=== PATIENT | male | born 1940 | race Caucasian/White ===

== ENCOUNTER 2016-09-12 08:40 | Outpatient (CLI) | payer MEDICARE | END 2016-09-12 08:41 | disposition home or self-care (01) | DX: I10 Essential (primary) hypertension (principal); E78.5 Hyperlipidemia, unspecified; E11.9 Type 2 diabetes mellitus without complications ==

== ENCOUNTER 2017-08-06 08:24 | Outpatient (CLI) | payer MEDICARE ==
[2017-08-06] MEDS ORDERED: REGADENOSON 0.4 MG/5 ML SYRINGE IVP ONE ×2 (09:53→12:46)
--- NOTE | 2017-08-06 11:38 | CARDIAC PROCEDURE NOTE ---
DATE OF SERVICE: 08/06/2017 Physician: OBDULIO Valentine DATE OF SERVICE: 08/06/2017 PRIMARY CARE PROVIDER: Lu Siddiqi MD PROCEDURE: Pharmacologic cardiac stress test. PROCEDURE SYMPTOM: Diaphoresis. CARDIAC RISK FACTORS: Include age, diabetes, hypertension, hyperlipidemia. No previous cardiac procedures. The patient held metoprolol for 1 day. CLINICAL HISTORY: A 77-year-old male without known coronary artery disease. INITIAL RESTING VITAL SIGNS: Blood pressure 148/98, heart rate 101, height 73 inches, weight 304 pounds, BMI 39.8. PROCEDURE AND FINDINGS: Patient identity and date verified, consent signed, pharmaceutical check. Pharmacologic stress testing was performed with Lexiscan at a dose of 0.4 mg over 10 seconds. The blood pressure rik to 166/102 and the heart rate increased to 115 beats per minute from the infusion. The blood pressure response was normal during the stress procedure. The patient developed infusion-related symptoms including shortness of air, which resolved spontaneously. The resting ECG demonstrated atrial fibrillation with no ST or T-wave changes. Maximum ST segment depression with stress was 0. There was no ventricular ectopy. FINAL IMPRESSION 1. Atrial fibrillation. 2. Negative electrocardiogram for ischemia in the setting of vasodilator stress. 3. Nondiagnostic stress test for angina. 4. Await myocardial perfusion report. TD: 08/06/2017 12:37
--- NOTE | 2017-08-06 15:54 | Nuclear Medicine Report ---
EXAM: SINGLE-ISOTOPE PHARMACOLOGICAL STRESS TEST WITH REGADENOSON. SINGLE-ISOTOPE AND ONE-DAY REST/STRESS M YOCARDIAL PERFUSION SCANS WITH TOMOGRAPHIC IMAGING, QUANTITATIVE ANALYSIS, WALL MOTION ANALYSIS AND C ALCULATION OF EJECTION FRACTION. EXAM DATE: 08/06/2017 09:51 AM. CLINICAL HISTORY: DIAPHORESIS, AFIB, HTN. COMPARISON: None. TECHNIQUE: After the intravenous administration of 10.7 mCi of Tc-99m sestamibi, a rest myocardial perfusion sca n was done with tomography. Motion correction was applied when appropriate. A pharmacological stress was performed with the infusion of 0.4 mg regadenoson per protocol. Accordin g to protocol, 41.5 mCi of Tc-99m sestamibi was injected for stress myocardial perfusion scan. Motion correction was applied when appropriate. Gated tomographic images were obtained for wall motion analysis and computation of left ventricular e jection fraction. FINDINGS: There is a small, moderate fixed defect in the inferior apex. There is a small, mild, fixed distal anteroseptal defect. No convincing reversible perfusion defects. Wall motion analysis demonstrates no focal wall motion abnormality. The left ventricular end-diastolic volume is 131 cc. The left ventricular end-systolic volume is 65 c c. The left ventricular ejection fraction is calculated to be 50%. IMPRESSION: 1. Small fixed defects in the inferior apex and distal anteroseptal wall. No convincing reversible pe rfusion defects. 2. Borderline left ventricular ejection fraction of 50%. 3. Normal segmental and global wall motion. 4. Normal left ventricular cavity size, no change with stress. [facility] Referring Provider Line: [phone] SITE ID: [id number]
[2017-08-06 18:20] VITALS: BP 148/98
== END 2017-08-06 08:25 | disposition home or self-care (01) ==
LOC: DI 08:24
PROVIDERS: ATTEND Physician Assistant Medical
DX: I48.91 Unspecified atrial fibrillation (principal); I10 Essential (primary) hypertension; R61 Generalized hyperhidrosis; E11.9 Type 2 diabetes mellitus without complications; E78.5 Hyperlipidemia, unspecified
CPT/HCPCS: 78452; 93017; A9500; J2785

== ENCOUNTER 2017-08-26 09:51 | Outpatient (CLI) | payer MEDICARE ==
[~2017-08-26 09:51] MED LIST: IOPAMIDOL-300 100 ML VIAL ONE
[2017-08-26 10:35] LABS: CREATININE 1.4 mg/dL (0.6-1.2)
[2017-08-26] MEDS ORDERED: IOPAMIDOL-300 100 ML VIAL ONE (10:48)
[2017-08-26] MEDS ORDERED: IOPAMIDOL-300 100 ML VIAL IVP ONE (11:13)
--- NOTE | 2017-08-26 14:15 | CT Report ---
CT CHEST WITH CONTRAST: 08/26/2017 CLINICAL INDICATION: Followup pulmonary nodule. COMPARISON: 10/19/2015. FINDINGS: Axial CT images of the chest were obtained with 80 mL Isovue 300 intravenously FINDINGS: The heart and great vessels demonstrate atherosclerotic calcifications. No hilar or mediastinal lymphadenopathy is present. The 10 mm nodule in the anterior lingula is stable. The lungs demonstrate mild peripheral fibrosis. No new pulmonary nodule is seen. No effusion or pneumothorax is present. Limited evaluation of upper abdominal structures demonstrates stable bilateral adrenal adenomas. Osseous structures demonstrate degenerative changes. IMPRESSION: STABLE 10 MM NODULE IN THE ANTERIOR LINGULA. NO NEW OR ENLARGING PULMONARY NODULE IS SEEN. In accordance with CT protocol optimization, one or more of the following dose reduction techniques were utilized for this exam: automated exposure control, adjustment of mA and/or KV based on patient size, or use of iterative reconstructive technique. TD: 08/26/2017 14:13
== END 2017-08-26 09:52 | disposition home or self-care (01) ==
LOC: LAB 09:51
PROVIDERS: ATTEND Family Medicine
DX: J98.4 Other disorders of lung (principal)
CPT/HCPCS: 36415; 71260; 82565; Q9967

== ENCOUNTER 2017-11-30 08:14 | Outpatient (CLI) | payer MEDICARE ==
[2017-11-30 12:57] LABS: CALCIUM 8.9 mg/dL (8.5-10.3); CREATININE 1.2 mg/dL (0.6-1.2); HB2 TOTAL 15.7 g/dL; HEMOGLOBIN A1C 0.88 g/dL; HEMOGLOBIN A1C % 7.3 % (4.6-6.2)
== END 2017-11-30 08:15 | disposition home or self-care (01) ==
LOC: LAB.WCP 08:14
PROVIDERS: ATTEND Family Medicine
DX: E11.9 Type 2 diabetes mellitus without complications (principal)
CPT/HCPCS: 36415; 80048; 82043; 83036

== ENCOUNTER 2018-05-05 14:57 | Outpatient (CLI) | payer MEDICARE ==
[2018-05-05 18:54] LABS: BASOPHILS # (AUTO) 0.1 10^3/uL (0.0-0.1); BASOPHILS % (AUTO) 0.8 %; EOSINOPHILS # (AUTO) 0.2 10^3/uL (0.0-0.7); HGB - HEMOGLOBIN 14.4 g/dL (14.0-18.0); LYMPHOCYTES # (AUTO) 2.2 10^3/uL (1.5-3.5); LYMPHOCYTES % (AUTO) 27.3 %; MEAN CORPUSCULAR HGB CONC 33.5 g/dL (32.0-36.0); MEAN CORPUSCULAR VOLUME 89.4 fL (80.0-94.0); MEAN PLATELET VOLUME 8.8 fL (7.4-11.4); MONOCYTES # (AUTO) 0.6 10^3/uL (0.0-1.0); NEUTROPHILS # (AUTO) 4.9 10^3/uL (1.5-6.6); NEUTROPHILS % (AUTO) 61.9 %; PLT - PLATELET COUNT 216 10^3/uL (130-450); RED BLOOD COUNT 4.81 10^6/uL (4.70-6.10); RED CELL DISTRIBUTION WIDTH 15.3 % (12.0-15.0); WHITE BLOOD COUNT 7.9 x10^3/uL (4.8-10.8)
[2018-05-05 19:17] LABS: ALBUMIN 3.9 g/dL (3.2-5.5); ALBUMIN/GLOBULIN RATIO 1.1 (1.0-2.2); ALKALINE PHOSPHATASE 62 IU/L (42-121); ALT ALANINE AMINOTRANSFERASE 12 IU/L (10-60); AST ASPARTATE AMINOTRANSFERASE 23 IU/L (10-42); BILIRUBIN,TOTAL 0.6 mg/dL (0.2-1.0); BUN - BLOOD UREA NITROGEN 21 mg/dL (6-20); CARBON DIOXIDE - CO2 24 mmol/L (21-32); CHLORIDE 104 mmol/L (101-111); CHOL/HDL RATIO 3.8 (<5.0); CHOLESTEROL 165 mg/dL; CREATININE 1.1 mg/dL (0.6-1.2); GFR - MDRD 65 (>89); GLUCOSE 173 mg/dL (70-100); HDL CHOLESTEROL 44 mg/dL; LDL CHOLESTEROL,CALCULATED 55 mg/dL; LDL/HDL RATIO 1.3 (<3.6); SODIUM 135 mmol/L (135-145); TOTAL PROTEIN 7.3 g/dL (6.7-8.2); VLDL CHOLESTEROL 66 mg/dL
[2018-05-05 19:38] LABS: HB2 TOTAL 15.1 g/dL; HEMOGLOBIN A1C 0.89 g/dL; HEMOGLOBIN A1C % 7.5 % (4.6-6.2)
== END 2018-05-05 14:58 | disposition home or self-care (01) ==
LOC: LAB.WCP 14:57
PROVIDERS: ATTEND Family Medicine
DX: E11.9 Type 2 diabetes mellitus without complications (principal); E78.5 Hyperlipidemia, unspecified
CPT/HCPCS: 36415; 80053; 80061; 83036; 83721; 85025

== ENCOUNTER 2018-12-20 08:00 | Outpatient (CLI) | payer MEDICARE, OTHER ==
[2018-12-20 12:46] LABS: BASOPHILS # (AUTO) 0.1 10^3/uL (0.0-0.1); BASOPHILS % (AUTO) 1.1 %; EOSINOPHILS # (AUTO) 0.2 10^3/uL (0.0-0.7); EOSINOPHILS % (AUTO) 3.3 %; HGB - HEMOGLOBIN 13.3 g/dL (14.0-18.0); LYMPHOCYTES # (AUTO) 1.8 10^3/uL (1.5-3.5); LYMPHOCYTES % (AUTO) 27.9 %; MEAN CORPUSCULAR HEMOGLOBIN 29.5 pg (27.0-31.0); MEAN CORPUSCULAR HGB CONC 33.3 g/dL (32.0-36.0); MEAN CORPUSCULAR VOLUME 88.6 fL (80.0-94.0); MEAN PLATELET VOLUME 8.3 fL (7.4-11.4); MONOCYTES # (AUTO) 0.4 10^3/uL (0.0-1.0); MONOCYTES % (AUTO) 6.3 %; NEUTROPHILS # (AUTO) 3.9 10^3/uL (1.5-6.6); NEUTROPHILS % (AUTO) 61.4 %; PLT - PLATELET COUNT 200 10^3/uL (130-450); RED BLOOD COUNT 4.51 10^6/uL (4.70-6.10); RED CELL DISTRIBUTION WIDTH 15.7 % (12.0-15.0); WHITE BLOOD COUNT 6.3 x10^3/uL (4.8-10.8)
[2018-12-20 12:55] LABS: HB2 TOTAL 13.3 g/dL; HEMOGLOBIN A1C 0.82 g/dL; HEMOGLOBIN A1C % 7.8 % (4.6-6.2)
[2018-12-20 13:07] LABS: ALBUMIN 3.8 g/dL (3.2-5.5); ALBUMIN/GLOBULIN RATIO 1.2 (1.0-2.2); ALKALINE PHOSPHATASE 46 IU/L (42-121); ALT ALANINE AMINOTRANSFERASE 11 IU/L (10-60); AST ASPARTATE AMINOTRANSFERASE 25 IU/L (10-42); BILIRUBIN,TOTAL 0.7 mg/dL (0.2-1.0); BUN - BLOOD UREA NITROGEN 17 mg/dL (6-20); CALCIUM 8.8 mg/dL (8.5-10.3); CARBON DIOXIDE - CO2 21 mmol/L (21-32); CHLORIDE 109 mmol/L (101-111); CHOL/HDL RATIO 3.6 (<5.0); CHOLESTEROL 142 mg/dL; CREATININE 1.2 mg/dL (0.6-1.2); GFR - MDRD 59 (>89); GLUCOSE 136 mg/dL (70-100); HDL CHOLESTEROL 40 mg/dL; LDL CHOLESTEROL,CALCULATED 82 mg/dL; LDL/HDL RATIO 2.1 (<3.6); SODIUM 140 mmol/L (135-145); TOTAL PROTEIN 7.1 g/dL (6.7-8.2); VLDL CHOLESTEROL 20 mg/dL
== END 2018-12-20 08:01 | disposition home or self-care (01) ==
LOC: LAB.WCP 08:00
PROVIDERS: ATTEND Family Medicine
DX: I48.91 Unspecified atrial fibrillation (principal); E11.9 Type 2 diabetes mellitus without complications
CPT/HCPCS: 36415; 80053; 80061; 83036; 83721; 84443; 85025

== ENCOUNTER 2018-12-23 10:43 | Outpatient (CLI) | payer MEDICARE, OTHER | END 2018-12-23 10:44 | disposition critical access hospital (66) | LOC: EMS 10:43 | PROVIDERS: ATTEND Surgery | DX: R04.0 Epistaxis (principal) | CPT/HCPCS: A0425; A0429 ==

== ENCOUNTER 2018-12-23 10:55 | Emergency (ER) | payer MEDICARE, OTHER ==
[2018-12-23 11:07] VITALS: BP 149/83
[2018-12-23] MEDS ORDERED: LIDOCAINE MPF 1%-EPI 1:200000 30 ML VIAL ONE (12:21)
--- NOTE | 2018-12-23 12:57 | ED Physician Documentation ---
PD HPI HEENT - Stated complaint Stated Complaint: NOSE BLEED - Chief complaint Chief Complaint: Heent - History obtained from History obtained from: Patient - History of Present Illness Timing - onset: Today Timing - details: Now resolved Location: Nose - Additional information Additional information: The patient is a 78-year-old male who presents after 2 hours of bleeding from the right side of his nose this morning. He reports similar bleeding 2 weeks ago, with recurrence this morning. He is on Xarelto for atrial fibrillation. He denies any traumatic injury to his nose. Review of Systems Constitutional: denies: Fever Eyes: denies: Irritation Ears: denies: Ear pain Nose: reports: Epistaxis. denies: Congestion Throat: denies: Sore throat Cardiac: denies: Chest pain / pressure Respiratory: denies: Dyspnea GI: denies: Abdominal Pain, Nausea, Vomiting Skin: denies: Rash Neurologic: denies: Focal weakness, Numbness, Headache PD PAST MEDICAL HISTORY - Past Medical History Past Medical History: Yes Cardiovascular: Hypertension, High cholesterol, Atrial fibrillation, Murmur Respiratory: Sleep apnea, CPAP use Endocrine/Autoimmune: Type 2 diabetes Musculoskeletal: Osteoarthritis - Past Surgical History Past Surgical History: Yes Ortho: Hip replacement, Other Derm: Skin grafts - Present Medications Home Medications: Ambulatory Orders Medication Instructions Recorded Confirmed Felodipine [Felodipine ER] 10 mg PO DAILY 12/23/18 12/23/18 Losartan Potassium 100 mg PO DAILY 12/23/18 12/23/18 Metoprolol/Hydrochlorothiazide 1 each PO DAILY 12/23/18 12/23/18 [Lopressor Hct 50-25 Tablet] Simvastatin 40 mg PO DAILY 12/23/18 12/23/18 Tamsulosin HCl [Flomax] 0.4 mg PO DAILY 12/23/18 12/23/18 Warfarin Sodium 5 mg PO DAILY 12/23/18 12/23/18 metFORMIN [Glucophage] 500 mg PO BID 12/23/18 12/23/18 - Allergies Allergies/Adverse Reactions: Allergies Allergy/AdvReac Type Severity Reaction Status Date / Time No Known Drug Allergies Allergy Verified 12/23/18 11:07 - Social History Does the pt smoke?: Yes Smoking Status: Current every day smoker Does the pt drink ETOH?: Yes Does the pt have substance abuse?: No - Immunizations Immunizations are current?: No Immunizations: TDAP >10years/unknown - POLST Patient has POLST: No PD ED PE NORMAL - Vitals Vital signs reviewed: Yes (Borderline hypertension initially.) - General General: Alert and oriented X 3, Well developed/nourished, Other ([place] facial appearance, with odor of stale alcohol on his breath.) - HEENT HEENT: Atraumatic, EOMI, Pharynx benign, Other (Bleeding site along the right anterior nasal septum is identified, but is no longer bleeding.) - Neck Neck: No adenopathy, No JVD - Cardiac Cardiac: RRR - Respiratory Respiratory: No respiratory distress, Clear bilaterally - Derm Derm: No rash - Neuro Neuro: Alert and oriented X 3, No motor deficit, Normal speech Results - Vitals Vitals: Vital Signs - 24 hr 12/23/18 11:04 Temperature 36.6 C Heart Rate 88 Respiratory 14 Rate Blood Pressure 149/83 H O2 Saturation 95 Oxygen O2 Source Room air Procedures - Epistaxis Site: Right, Anterior Preparation: Lidocaine Treatment: Silver Nitrate Other: Observed - no bleeding, Pt tolerated well, O2 sat WNL PD MEDICAL DECISION MAKING - ED course Complexity details: re-evaluated patient, considered differential, d/w patient ED course: The patient's presentation is significant for right anterior epistaxis, on anticoagulant therapy. Treatment in the emergency department included silver nitrate cautery of the bleeding site, after topical lidocaine anesthesia. The patient was observed and had no recurrent episode of bleeding. Antibiotic ointment was applied to the nasal mucosa. I discussed with him appropriate care of the cautery site, as well as potentially worrisome signs or symptoms that should prompt reevaluation in the emergency department. Departure - Departure Disposition: 01 Home, Self Care Clinical Impression: Anterior epistaxis Condition: Stable Instructions: ED Nosebleed Follow-Up: Olga Siddiqi DO [Primary Care Provider] - Comments: Apply antibiotic ointment to your nasal mucosa daily. If your nose bleeds again apply pressure to the side of your nose that is bleeding. If the bleeding does not stop within 10 to 15 minutes, return to the emergency department. Discharge Date/Time: 12/23/18 13:02
== END 2018-12-23 13:02 | disposition home or self-care (01) ==
LOC: EDUNIT# → ED 10:55
DX: R04.0 Epistaxis (principal); I48.91 Unspecified atrial fibrillation; I10 Essential (primary) hypertension; E11.9 Type 2 diabetes mellitus without complications; Z79.01 Long term (current) use of anticoagulants; Z79.84 Long term (current) use of oral hypoglycemic drugs; Z79.899 Other long term (current) drug therapy; F17.200 Nicotine dependence, unspecified, uncomplicated
CPT/HCPCS: 30901; 99283

== ENCOUNTER 2019-05-24 14:14 | Outpatient (CLI) | payer MEDICARE, OTHER ==
[2019-05-24 18:46] LABS: BASOPHILS % (AUTO) 0.5 %; EOSINOPHILS # (AUTO) 0.1 10^3/uL (0.0-0.7); EOSINOPHILS % (AUTO) 1.7 %; HGB - HEMOGLOBIN 13.4 g/dL (14.0-18.0); LYMPHOCYTES # (AUTO) 2.2 10^3/uL (1.5-3.5); LYMPHOCYTES % (AUTO) 26.8 %; MEAN CORPUSCULAR HEMOGLOBIN 28.6 pg (27.0-31.0); MEAN CORPUSCULAR HGB CONC 31.4 g/dL (32.0-36.0); MEAN PLATELET VOLUME 10.7 fL (7.4-11.4); MONOCYTES # (AUTO) 0.5 10^3/uL (0.0-1.0); MONOCYTES % (AUTO) 6.4 %; NEUTROPHILS # (AUTO) 5.2 10^3/uL (1.5-6.6); PLT - PLATELET COUNT 205 10^3/uL (130-450); RED BLOOD COUNT 4.69 10^6/uL (4.70-6.10); RED CELL DISTRIBUTION WIDTH 15.6 % (12.0-15.0); WHITE BLOOD COUNT 8.1 x10^3/uL (4.8-10.8)
[2019-05-24 19:02] LABS: HB2 TOTAL 13.6 g/dL; HEMOGLOBIN A1C 0.83 g/dL; HEMOGLOBIN A1C % 7.7 % (4.6-6.2)
[2019-05-24 19:03] LABS: CREATININE,URINE 157.7 mg/dL; MICROALBUM/CREATININE RATIO,UR 4.4 ug/mg (<30.0); MICROALBUMIN,URINE 0.7 mg/dL (0-300.0)
[2019-05-24 19:05] LABS: ALBUMIN/GLOBULIN RATIO 1.1 (1.0-2.2); ALKALINE PHOSPHATASE 49 IU/L (42-121); ALT ALANINE AMINOTRANSFERASE 13 IU/L (10-60); AST ASPARTATE AMINOTRANSFERASE 26 IU/L (10-42); BILIRUBIN,TOTAL 0.8 mg/dL (0.2-1.0); BUN - BLOOD UREA NITROGEN 22 mg/dL (6-20); CALCIUM 8.9 mg/dL (8.5-10.3); CARBON DIOXIDE - CO2 24 mmol/L (21-32); CHLORIDE 105 mmol/L (101-111); CHOL/HDL RATIO 3.3 (<5.0); CHOLESTEROL 139 mg/dL; CREATININE 1.1 mg/dL (0.6-1.2); GFR - MDRD 65 (>89); GLUCOSE 99 mg/dL (70-100); HDL CHOLESTEROL 42 mg/dL; LDL CHOLESTEROL,CALCULATED 68 mg/dL; LDL/HDL RATIO 1.6 (<3.6); SODIUM 140 mmol/L (135-145); TOTAL PROTEIN 7.6 g/dL (6.7-8.2); VLDL CHOLESTEROL 29 mg/dL
== END 2019-05-24 23:59 | disposition home or self-care (01) ==
LOC: LAB.WCP 14:14
PROVIDERS: ATTEND Family Medicine
DX: E11.9 Type 2 diabetes mellitus without complications (principal)
CPT/HCPCS: 36415; 80053; 80061; 82043; 82570; 83036; 83721; 84443; 85025

== ENCOUNTER 2019-05-31 14:17 | Outpatient (CLI) | payer MEDICARE, OTHER ==
--- NOTE | 2019-05-31 16:41 | XRAY Report ---
Reason: RIGHT 5TH TOE PAIN Procedure Date: 05/31/2019 Accession Number: [id number] / [id number] Procedure: WCP - Toe(s) RT CPT Code: Final Report FULL RESULT: EXAM: RIGHT TOE RADIOGRAPHY. EXAM DATE: 05/31/2019 02:17 PM. CLINICAL HISTORY: Right 5th toe pain. COMPARISON: None. TECHNIQUE: 3 views. FINDINGS: Bones: There is a nondisplaced oblique transverse fracture through the base of the tuft, distal phalanx 5th digit. Nondisplaced transverse fracture proximal metaphysis of the 5th proximal phalanx as well. No additional fractures identified. Joints: Normal. No subluxations. Soft Tissues: Soft tissue swelling noted of the 5th digit. IMPRESSION: Nondisplaced transverse fractures proximal metaphysis 5th proximal phalanx and base of the tuft 5th distal phalanx. [facility]
== END 2019-05-31 23:59 | disposition home or self-care (01) ==
LOC: DI.WCP 14:17
PROVIDERS: ATTEND Family Medicine
DX: S92.514A Nondisplaced fracture of proximal phalanx of right lesser toe(s), initial encounter for closed fracture (principal); S92.534A Nondisplaced fracture of distal phalanx of right lesser toe(s), initial encounter for closed fracture
CPT/HCPCS: 73660

== ENCOUNTER 2019-11-23 08:18 | Outpatient (CLI) | payer MEDICARE, OTHER ==
--- NOTE | 2019-11-24 12:12 | CT Report ---
Reason: PULMONARY NODULE Procedure Date: 11/23/2019 Accession Number: [id number] / [id number] Procedure: CT - CHEST WO CPT Code: Final Report FULL RESULT: EXAM: CT CHEST EXAM DATE: 11/23/2019 08:35 AM. CLINICAL HISTORY: Pulmonary nodule. COMPARISONS: CHEST W/ 08/26/2017 10:56 AM. CHEST W/O 10/19/2015 11:01 AM. TECHNIQUE: Routine helical CT imaging was performed through the chest. IV contrast: None. Reconstructions: Coronal and sagittal. In accordance with CT protocol optimization, one or more of the following dose reduction techniques were utilized for this exam: automated exposure control, adjustment of mA and/or KV based on patient size, or use of iterative reconstructive technique. FINDINGS: Lungs/Pleura: No endobronchial obstruction. Peripheral subpleural reticulation and groundglass opacities are seen with more prominent subpleural reticulation, mild bronchial dilatation and groundglass opacities in both lower lobes which has progressed in the interval consistent with interstitial lung disease. Lingular subpleural 10 mm nodule, image 229, series 4, stable. Adjacent left upper lobe nodules image 154, series 4, the largest measuring 4 mm, stable. Peripheral right upper lobe nodule measuring 4 mm, image 104, series 4, stable. Right middle lobe 3 mm nodule image 180, series 4, stable. Left upper lobe 3 mm nodule image 99, series 4, stable. No new parenchymal nodules are identified. Mediastinum: Visualized thyroid gland is unremarkable. Heart size is normal. Extensive coronary artery calcified plaque. Aortic valve calcifications. Thoracic aortic atherosclerosis. No enlarged mediastinal or hilar lymph nodes are identified. Thoracic aorta is tortuous. Bones: Degenerative changes of the thoracic spine. Degenerative changes of both shoulders. No acute osseous abnormalities. Visualized Abdomen: Abdominal aortic atherosclerosis. Low-density right adrenal nodule again seen, stable in size, measuring up to 34 mm, nodule is consistent with an adenoma. Left adrenal nodule also again seen measuring 55 mm, also stable in size and most consistent with an adenoma. Otherwise unremarkable upper abdomen. Other: None. IMPRESSION: 1. Stable bilateral lung nodules, the largest 10 mm in the lingula compared to 10/19/2015. 2. Progression of interstitial lung disease. 3. Stable bilateral adrenal nodules. [facility]
== END 2019-11-23 08:19 | disposition home or self-care (01) ==
LOC: DI 08:18
PROVIDERS: ATTEND Family Medicine
DX: R91.8 Other nonspecific abnormal finding of lung field (principal); J84.9 Interstitial pulmonary disease, unspecified; E27.8 Other specified disorders of adrenal gland
CPT/HCPCS: 71250

== ENCOUNTER 2020-03-22 08:00 | Outpatient (CLI) | payer MEDICARE, OTHER ==
[2020-03-22 12:10] LABS: BASOPHILS # (AUTO) 0.1 10^3/uL (0.0-0.1); BASOPHILS % (AUTO) 0.8 %; EOSINOPHILS # (AUTO) 0.2 10^3/uL (0.0-0.7); EOSINOPHILS % (AUTO) 3.4 %; HGB - HEMOGLOBIN 13.9 g/dL (14.0-18.0); MEAN CORPUSCULAR HEMOGLOBIN 30.3 pg (27.0-31.0); MEAN CORPUSCULAR HGB CONC 33.1 g/dL (32.0-36.0); MEAN CORPUSCULAR VOLUME 91.7 fL (80.0-94.0); MEAN PLATELET VOLUME 10.8 fL (7.4-11.4); MONOCYTES # (AUTO) 0.4 10^3/uL (0.0-1.0); MONOCYTES % (AUTO) 6.9 %; NEUTROPHILS # (AUTO) 3.5 10^3/uL (1.5-6.6); NEUTROPHILS % (AUTO) 56.2 %; PLT - PLATELET COUNT 189 10^3/uL (130-450); RED BLOOD COUNT 4.58 10^6/uL (4.70-6.10); RED CELL DISTRIBUTION WIDTH 14.3 % (12.0-15.0); WHITE BLOOD COUNT 6.1 x10^3/uL (4.8-10.8)
[2020-03-22 12:26] LABS: ALBUMIN 3.7 g/dL (3.2-5.5); ALBUMIN/GLOBULIN RATIO 1.1 (1.0-2.2); ALKALINE PHOSPHATASE 86 IU/L (42-121); ALT ALANINE AMINOTRANSFERASE 13 IU/L (10-60); AST ASPARTATE AMINOTRANSFERASE 19 IU/L (10-42); BILIRUBIN,TOTAL 0.5 mg/dL (0.2-1.0); BUN - BLOOD UREA NITROGEN 21 mg/dL (6-20); CALCIUM 8.9 mg/dL (8.5-10.3); CARBON DIOXIDE - CO2 26 mmol/L (21-32); CHLORIDE 103 mmol/L (101-111); CHOL/HDL RATIO 5.2 (<5.0); CHOLESTEROL 182 mg/dL; CREATININE 1.1 mg/dL (0.6-1.2); GLUCOSE 347 mg/dL (70-100); HDL CHOLESTEROL 35 mg/dL; LDL CHOLESTEROL,CALCULATED 123 mg/dL; LDL/HDL RATIO 3.5 (<3.6); SODIUM 137 mmol/L (135-145); TOTAL PROTEIN 7.2 g/dL (6.7-8.2); VLDL CHOLESTEROL 24 mg/dL
[2020-03-22 12:40] LABS: CREATININE,URINE 133.5 mg/dL; MICROALBUM/CREATININE RATIO,UR 9.7 ug/mg (<30.0); MICROALBUMIN,URINE 1.3 mg/dL (0-300.0)
[2020-03-22 12:56] LABS: HEMOGLOBIN A1c% 12.4 % (4.27-6.07)
== END 2020-03-22 23:59 | disposition home or self-care (01) ==
LOC: LAB.WCP 08:00
PROVIDERS: ATTEND Family Medicine
DX: E11.9 Type 2 diabetes mellitus without complications (principal)
CPT/HCPCS: 36415; 80053; 80061; 82043; 82570; 83036; 83721; 84443; 85025

== ENCOUNTER 2020-05-31 06:53 | Outpatient (CLI) | payer MEDICARE, OTHER ==
--- NOTE | 2020-05-31 09:28 | Ultrasound Report ---
PROCEDURE: Aorta Screening INDICATIONS: NICOTINE ADDICTION IN REMISSION TECHNIQUE: Real time scanning was performed of the aorta and iliac arteries, with image documentatio n. COMPARISON: CT of chest dated 11/23/2019 FINDINGS: Aorta: Proximal aortic diameter measures 3.4 x 3.3 cm. Mid-aorta measures 2.8 x 3.0 cm. Distal aor tic diameter is 3.0 x 3.6 cm. Iliac arteries: Right common iliac artery measures 4 x 3.5 cm. Left common iliac artery measures 2. 4 x 2.6 cm. Extensive calcified atherosclerotic plaques are noted throughout abdominal aorta and bilateral iliac arteries. IMPRESSION: 1. Mild distal abdominal aortic aneurysm measures up to 3 x 3.6 cm in diameter. 2. Right common iliac artery aneurysm measures up to 4 x 3.5 cm in diameter. 3. Calcified plaques are noted throughout aorta and bilateral iliac arteries. Reviewed by: Butch Silva MD on 05/31/2020 8:26 AM [place] Approved by: Butch Silva MD on 05/31/2020 8:26 AM [facility] Station ID: [id number]
== END 2020-05-31 06:54 | disposition home or self-care (01) ==
LOC: DI 06:53
PROVIDERS: ATTEND Family Medicine
DX: Z13.6 Encounter for screening for cardiovascular disorders (principal); I71.4 Abdominal aortic aneurysm, without rupture; I72.3 Aneurysm of iliac artery; I70.0 Atherosclerosis of aorta; I70.8 Atherosclerosis of other arteries; F17.201 Nicotine dependence, unspecified, in remission
CPT/HCPCS: 76706

== ENCOUNTER 2020-11-09 13:06 | Outpatient (CLI) | payer MEDICARE, OTHER ==
[2020-11-09 17:41] LABS: BASOPHILS # (AUTO) 0.1 10^3/uL (0.0-0.1); BASOPHILS % (AUTO) 0.8 %; EOSINOPHILS # (AUTO) 0.1 10^3/uL (0.0-0.7); EOSINOPHILS % (AUTO) 1.5 %; HGB - HEMOGLOBIN 14.4 g/dL (14.0-18.0); LYMPHOCYTES # (AUTO) 2.1 10^3/uL (1.5-3.5); LYMPHOCYTES % (AUTO) 22.6 %; MEAN CORPUSCULAR HEMOGLOBIN 28.8 pg (27.0-31.0); MEAN CORPUSCULAR HGB CONC 31.3 g/dL (32.0-36.0); MEAN PLATELET VOLUME 10.9 fL (7.4-11.4); MONOCYTES # (AUTO) 0.5 10^3/uL (0.0-1.0); MONOCYTES % (AUTO) 5.7 %; NEUTROPHILS # (AUTO) 6.4 10^3/uL (1.5-6.6); NEUTROPHILS % (AUTO) 68.5 %; PLT - PLATELET COUNT 235 10^3/uL (130-450); RED CELL DISTRIBUTION WIDTH 14.9 % (12.0-15.0); WHITE BLOOD COUNT 9.3 x10^3/uL (4.8-10.8)
[2020-11-09 18:00] LABS: CREATININE,URINE 162.7 mg/dL; MICROALBUM/CREATININE RATIO,UR 10.4 ug/mg (<30.0); MICROALBUMIN,URINE 1.7 mg/dL (0-300.0)
[2020-11-09 18:07] LABS: ALBUMIN 3.9 g/dL (3.2-5.5); ALKALINE PHOSPHATASE 64 IU/L (42-121); ALT ALANINE AMINOTRANSFERASE 13 IU/L (10-60); AST ASPARTATE AMINOTRANSFERASE 21 IU/L (10-42); BILIRUBIN,TOTAL 0.8 mg/dL (0.2-1.0); BUN - BLOOD UREA NITROGEN 21 mg/dL (6-20); CALCIUM 9.3 mg/dL (8.5-10.3); CARBON DIOXIDE - CO2 27 mmol/L (21-32); CHLORIDE 100 mmol/L (101-111); CHOL/HDL RATIO 4.7 (<5.0); CHOLESTEROL 184 mg/dL; CREATININE 1.3 mg/dL (0.6-1.2); GFR - MDRD 53 (>89); GLUCOSE 253 mg/dL (70-100); HDL CHOLESTEROL 39 mg/dL; LDL CHOLESTEROL,CALCULATED 89 mg/dL; LDL/HDL RATIO 2.3 (<3.6); POTASSIUM 4.3 mmol/L (3.5-5.0); SODIUM 139 mmol/L (135-145); TOTAL PROTEIN 7.9 g/dL (6.7-8.2); TRIGLYCERIDES 280 mg/dL; VLDL CHOLESTEROL 56 mg/dL
[2020-11-09 18:14] LABS: THYROID STIMULATING HORMONE 1.05 uIU/mL (0.34-5.60)
[2020-11-09 20:44] LABS: ESTIMATED AVERAGE GLUCOSE 177 mg/dL (70-100); HEMOGLOBIN A1c% 7.8 % (4.27-6.07)
== END 2020-11-09 23:59 | disposition home or self-care (01) ==
LOC: LAB.WCP 13:06
PROVIDERS: ATTEND Family Medicine
DX: E11.8 Type 2 diabetes mellitus with unspecified complications (principal); Z79.4 Long term (current) use of insulin
CPT/HCPCS: 36415; 80053; 80061; 82043; 82570; 83036; 83721; 84443; 85025

== ENCOUNTER 2021-03-09 17:01 | Emergency (ER) | payer MEDICARE, OTHER ==
[2021-03-09] MEDS ORDERED: cefTRIAXone 1 GM VIAL IVP STA (17:33)
[2021-03-09 17:49] LABS: BASOPHILS # (AUTO) 0.1 10^3/uL (0.0-0.1); BASOPHILS % (AUTO) 0.7 %; EOSINOPHILS # (AUTO) 0.1 10^3/uL (0.0-0.7); EOSINOPHILS % (AUTO) 1.3 %; HGB - HEMOGLOBIN 13.7 g/dL (14.0-18.0); LYMPHOCYTES # (AUTO) 2.2 10^3/uL (1.5-3.5); LYMPHOCYTES % (AUTO) 19.7 %; MEAN CORPUSCULAR HEMOGLOBIN 29.8 pg (27.0-31.0); MEAN CORPUSCULAR HGB CONC 32.6 g/dL (32.0-36.0); MEAN CORPUSCULAR VOLUME 91.3 fL (80.0-94.0); MEAN PLATELET VOLUME 9.5 fL (7.4-11.4); MONOCYTES # (AUTO) 0.7 10^3/uL (0.0-1.0); MONOCYTES % (AUTO) 6.5 %; NEUTROPHILS # (AUTO) 7.8 10^3/uL (1.5-6.6); NEUTROPHILS % (AUTO) 71.2 %; PLT - PLATELET COUNT 201 10^3/uL (130-450); RED CELL DISTRIBUTION WIDTH 14.3 % (12.0-15.0)
--- NOTE | 2021-03-09 17:49 | ED Physician Documentation ---
History of Present Illness - Stated complaint Stated Complaint: LT LEG INFECTION - Chief complaint Chief Complaint: Ext Problem - History obtained from History obtained from: Patient, Family - History of Present Illness Timing: How many weeks ago (1) Pain level max: 5 Pain level now: 5 - Additonal information Additional information: Patient is a 80-year-old male who presents to the emergency department stating that he scraped his left leg about a week ago. States increased redness swelling and drainage from the wounds now. Has not seen his doctor. He states he has having pain in the posterior aspect of the calf as well. Worse with walking, better with rest. No fevers. No chills. Patient is diabetic. Review of Systems Ten Systems: 10 systems reviewed and negative Constitutional: denies: Fever, Chills Cardiac: denies: Chest pain / pressure, Palpitations Respiratory: denies: Dyspnea, Cough GI: denies: Abdominal Pain, Vomiting, Diarrhea Skin: denies: Rash Musculoskeletal: denies: Neck pain, Back pain Neurologic: denies: Headache PD PAST MEDICAL HISTORY - Past Medical History Cardiovascular: Hypertension, High cholesterol, Atrial fibrillation, Murmur Respiratory: Sleep apnea, CPAP use Endocrine/Autoimmune: Type 2 diabetes Musculoskeletal: Osteoarthritis - Past Surgical History Past Surgical History: Yes Ortho: Hip replacement, Other Derm: Skin grafts - Present Medications Home Medications: Ambulatory Orders Medication Instructions Recorded Confirmed Losartan Potassium 100 mg PO DAILY 12/23/18 06/28/20 Simvastatin 40 mg PO QPM 12/23/18 06/28/20 Tamsulosin HCl [Flomax] 0.4 mg PO DAILY 12/23/18 06/28/20 Insulin Glargine,Hum.rec.anlog 25 unit SUBQ DAILY 06/28/20 06/28/20 [Basaglar Kwikpen U-100] Losartan Potassium [Cozaar] 100 mg PO DAILY 06/28/20 06/28/20 Rivaroxaban [Xarelto] 20 mg PO DAILY 06/28/20 06/28/20 hydroCHLOROthiazide [Hydrodiuril] 25 mg PO DAILY 06/28/20 06/28/20 Oxycodone HCl/Acetaminophen 1 - 2 each PO Q6H PRN #14 tablet 03/09/21 [Percocet 5-325 mg Tablet] clindamycin HCL [Cleocin HCl] 300 mg PO Q6H #40 cap 03/09/21 - Allergies Allergies/Adverse Reactions: Allergies Allergy/AdvReac Type Severity Reaction Status Date / Time No Known Drug Allergies Allergy Verified 03/09/21 17:16 - Social History Does the pt smoke?: Yes Smoking Status: Current every day smoker Does the pt drink ETOH?: Yes Does the pt have substance abuse?: No - Immunizations Immunizations are current?: No Immunizations: TDAP >10years/unknown - POLST Patient has POLST: No PD ED PE NORMAL - Vitals Vital signs reviewed: Yes - General General: Alert and oriented X 3, No acute distress - HEENT HEENT: Moist mucous membranes - Neck Neck: Supple, no meningeal sign - Cardiac Cardiac: RRR, Strong equal pulses - Respiratory Respiratory: No respiratory distress, Clear bilaterally - Abdomen Abdomen: Soft, Non tender, Non distended - Derm Derm: Warm and dry - Extremities Extremities: Other (Lower extremity, there is a 10 x 10 cm erythematous, weeping area to the left lower extremity. There is slight purulent drainage, scabs are present. There is no abscess. There is also mild swelling near the ankle. There is tenderness on the posterior aspect of the calf. Neurovascularly intact.) - Neuro Neuro: Alert and oriented X 3 - Psych Psych: Normal mood, Normal affect Results - Vitals Vitals: Vital Signs - 24 hr 03/09/21 03/09/21 03/09/21 17:09 19:27 20:39 Temperature 37.9 C 36.5 C 36.5 C Heart Rate 110 H 86 86 Respiratory 18 18 18 Rate Blood Pressure 134/78 H 144/93 H 144/93 H O2 Saturation 95 96 96 Oxygen O2 Source Room air - Labs Labs: Microbiology 03/09/21 17:43 Wound Culture - Preliminary Leg - Left Laboratory Tests 03/09/21 03/09/21 03/09/21 17:45 17:45 17:45 WBC 11.0 H RBC 4.60 L Hgb 13.7 L Hct 42.0 MCV 91.3 MCH 29.8 MCHC 32.6 RDW 14.3 Plt Count 201 MPV 9.5 Neut # (Auto) 7.8 H Lymph # (Auto) 2.2 [place] # (Auto) 0.7 Eos # (Auto) 0.1 Baso # (Auto) 0.1 Absolute Nucleated RBC 0.00 Nucleated RBC % 0.0 ESR 48 H Sodium 137 Potassium 3.7 Chloride 102 Carbon Dioxide 25 Anion Gap 10.0 BUN 23 H Creatinine 1.2 Estimated GFR (MDRD) 59 L Glucose 237 H Lactic Acid Calcium 8.9 Total Bilirubin 0.8 AST 21 ALT 16 Alkaline Phosphatase 73 C-Reactive Protein 13.8 H Total Protein 8.0 Albumin 3.4 Globulin 4.6 H Albumin/Globulin Ratio 0.7 L 03/09/21 18:28 WBC RBC Hgb Hct MCV MCH MCHC RDW Plt Count MPV Neut # (Auto) Lymph # (Auto) [place] # (Auto) Eos # (Auto) Baso # (Auto) Absolute Nucleated RBC Nucleated RBC % ESR Sodium Potassium Chloride Carbon Dioxide Anion Gap BUN Creatinine Estimated GFR (MDRD) Glucose Lactic Acid 1.0 Calcium Total Bilirubin AST ALT Alkaline Phosphatase C-Reactive Protein Total Protein Albumin Globulin Albumin/Globulin Ratio - Rads (name of study) Duplex ultrasound left lower extremity Radiology: Final report received, EMP read contemporaneously, See rad report (No DVT) PD MEDICAL DECISION MAKING - ED course Complexity details: reviewed results, re-evaluated patient, considered differential, d/w patient ED course: 80-year-old male presents to the emergency department with cellulitis and weeping abrasions to the LLE. No DVT on ultrasound. No evidence of osteomyelitis. No evidence of sepsis. Given Rocephin here. We will place on clindamycin for home. Wound culture obtained. He will follow up closely with his doctor on Thursday for a referral to the [facility] clinic for wound care. I am prescribing a short course of short-acting opioid pain medication for this patient. I have reviewed the patients [employer] and no concerning findings were noted. I have discussed that the opioids are for short term therapy only, and will not be refilled from the ED. patient counseled regarding signs and symptoms for which I believe and urgent re-evaluation would be necessary. Patient with good understanding of and agreement to plan and is comfortable going home at this time This document was made in part using voice recognition software. While efforts are made to proofread this document, sound alike and grammatical errors may occur. Departure - Departure Disposition: 01 Home, Self Care Clinical Impression: Cellulitis Qualifiers: Site of cellulitis: extremity Site of cellulitis of extremity: lower extremity Laterality: left Qualified Code(s): L03.116 - Cellulitis of left lower limb Condition: Good Instructions: ED Infec Skin Cellulitis Follow-Up: Olga Siddiqi DO [Primary Care Provider] - Within 3 Days Prescriptions: clindamycin HCL [Cleocin HCl] 300 mg PO Q6H #40 cap Oxycodone HCl/Acetaminophen [Percocet 5-325 mg Tablet] 1 - 2 each PO Q6H PRN #14 tablet PRN Reason: pain Comments: Take all antibiotics until gone. Follow-up with your doctor closely for a referral to the [facility] clinic for wound care. If you are failing to improve over the next 24 to 48 hours, return for admission to the hospital. Return sooner for redness going up the leg or fevers. The redness should start to decrease over the next 24 hours. The drainage may take slightly longer to start to improve. You can change the dressings daily. Your prescriptions were sent to [facility] Discharge Date/Time: 03/09/21 20:47
[2021-03-09 18:06] LABS: ALBUMIN 3.4 g/dL (3.2-5.5); ALBUMIN/GLOBULIN RATIO 0.7 (1.0-2.2); BILIRUBIN,TOTAL 0.8 mg/dL (0.2-1.0); CALCIUM 8.9 mg/dL (8.5-10.3); CREATININE 1.2 mg/dL (0.6-1.2); CRP - C-REACTIVE PROTEIN 13.8 mg/dL (0-1.0); POTASSIUM 3.7 mmol/L (3.5-5.0)
[2021-03-09] MEDS ORDERED: MORPHINE 2 MG/ML CARPUJECT IVP STA (18:21)
[2021-03-09] MEDS ORDERED: SODIUM CHLORIDE 0.9% 1,000 ML IV STA ×2 (18:21)
[2021-03-09] MEDS ORDERED: BACITRACIN ZINC OINT 1 PACKET TOP STA (18:38)
[2021-03-09 19:27] VITALS: BP 144/93
--- NOTE | 2021-03-09 20:15 | Ultrasound Report ---
PROCEDURE: Duplex Ext Veins Left INDICATIONS: LLE calf pain TECHNIQUE: Real-time imaging, as well as color and pulse Doppler interrogation, were performed of the lower extr emity deep veins from the inguinal ligament to the popliteal fossa. COMPARISON: None. FINDINGS: The deep veins are normally compressible, and free of intraluminal thrombus. Color and pu lse Doppler demonstrate normal phasic intraluminal flow. There is normal augmentation response to di stal compression maneuver. IMPRESSION: No sonographic evidence of DVT. Reviewed by: Jaspreet Hinton MD on 03/09/2021 8:14 PM PDT Approved by: Jaspreet Hinton MD on 03/09/2021 8:14 PM PDT Station ID: [id number]
[2021-03-09] MEDS ORDERED: oxyCODONE 5 MG TABLET PO STA (20:24)
== END 2021-03-09 20:47 | disposition home or self-care (01) ==
LOC: ED 17:01
DX: L03.116 Cellulitis of left lower limb (principal); S80.812A Abrasion, left lower leg, initial encounter; X58.XXXA Exposure to other specified factors, initial encounter; I10 Essential (primary) hypertension; E11.9 Type 2 diabetes mellitus without complications; Z79.4 Long term (current) use of insulin; I48.91 Unspecified atrial fibrillation; Z79.01 Long term (current) use of anticoagulants; F17.200 Nicotine dependence, unspecified, uncomplicated
CPT/HCPCS: 36415; 80053; 83605; 85025; 85651; 86140; 87040; 87070; 87077; 87205; 93971; 96374; 96375; 99284; A9270

== ENCOUNTER 2021-03-11 17:14 | Inpatient (IN) | payer MEDICARE, OTHER ==
[2021-03-11] MEDS ORDERED: ceFAZolin 1 GM VIAL IVP STA (17:37)
--- NOTE | 2021-03-11 17:39 | ED Physician Documentation ---
PD HPI WOUND RECHECK - Stated complaint Stated Complaint: L LEG WOUND - Chief complaint Chief Complaint: Wound - Histroy obtained from History obtained from: Patient, Family ( by phone [phone]) - Additional information Additional information: 80-year-old gentleman with type 2 diabetes he does take insulin was seen by my partner 2 days ago for a left lower extremity cellulitis that had developed after minor trauma to the left anderson. He was placed on clindamycin, and a culture was done. Subsequently grew group A strep. He was placed on clindamycin but his cellulitis has progressed to circumferential around the calf and the foot. Review of Systems Ten Systems: 10 systems reviewed and negative Constitutional: reports: Reviewed and negative Eyes: reports: Reviewed and negative Ears: reports: Reviewed and negative Nose: reports: Reviewed and negative PD PAST MEDICAL HISTORY - Past Medical History Cardiovascular: Hypertension, High cholesterol, Atrial fibrillation, Murmur Respiratory: Sleep apnea, CPAP use Endocrine/Autoimmune: Type 2 diabetes Musculoskeletal: Osteoarthritis - Past Surgical History Past Surgical History: Yes Ortho: Hip replacement, Other Derm: Skin grafts - Present Medications Home Medications: Ambulatory Orders Medication Instructions Recorded Confirmed Losartan Potassium 100 mg PO DAILY 12/23/18 06/28/20 Simvastatin 40 mg PO QPM 12/23/18 06/28/20 Tamsulosin HCl [Flomax] 0.4 mg PO DAILY 12/23/18 06/28/20 Insulin Glargine,Hum.rec.anlog 25 unit SUBQ DAILY 06/28/20 06/28/20 [Basaglar Kwikpen U-100] Losartan Potassium [Cozaar] 100 mg PO DAILY 06/28/20 06/28/20 Rivaroxaban [Xarelto] 20 mg PO DAILY 06/28/20 06/28/20 hydroCHLOROthiazide [Hydrodiuril] 25 mg PO DAILY 06/28/20 06/28/20 Oxycodone HCl/Acetaminophen 1 - 2 each PO Q6H PRN #14 tablet 03/09/21 [Percocet 5-325 mg Tablet] clindamycin HCL [Cleocin HCl] 300 mg PO Q6H #40 cap 03/09/21 - Allergies Allergies/Adverse Reactions: Allergies Allergy/AdvReac Type Severity Reaction Status Date / Time No Known Drug Allergies Allergy Verified 03/09/21 17:16 - Social History Does the pt smoke?: Yes Smoking Status: Current every day smoker Does the pt drink ETOH?: Yes Does the pt have substance abuse?: No - Immunizations Immunizations are current?: No Immunizations: TDAP >10years/unknown - POLST Patient has POLST: No PD ED PE NORMAL - Vitals Vital signs reviewed: Yes - General General: Alert and oriented X 3, No acute distress - HEENT HEENT: PERRL, EOMI - Neck Neck: Supple, no meningeal sign, No bony TTP - Cardiac Cardiac: RRR, No murmur - Respiratory Respiratory: No respiratory distress, Clear bilaterally - Abdomen Abdomen: Soft, Non tender - Back Back: No CVA TTP, No spinal TTP - Derm Derm: Normal color, Warm and dry - Extremities Extremities: Other (Multiple small draining ulcers on the anterior left anderson with cellulitis from just below the knee down throughout the foot. There is also a noninfected ulcer of the fourth toe of the left foot.) - Neuro Neuro: Alert and oriented X 3, Normal speech - Psych Psych: Normal mood, Normal affect Results - Vitals Vitals: Vital Signs - 24 hr 03/11/21 03/11/21 17:20 17:22 Temperature 36.8 C 36.8 C Heart Rate 78 78 Respiratory 16 16 Rate Blood Pressure 146/115 H 146/115 H O2 Saturation 96 96 Oxygen O2 Source Room air - Labs Labs: Laboratory Tests 03/11/21 03/11/21 03/11/21 17:30 17:48 17:48 WBC 7.9 RBC 4.52 L Hgb 13.4 L Hct 41.1 L MCV 90.9 MCH 29.6 MCHC 32.6 RDW 14.1 Plt Count 213 MPV 9.4 Neut # (Auto) 5.2 Lymph # (Auto) 2.0 Douglas # (Auto) 0.5 Eos # (Auto) 0.2 Baso # (Auto) 0.0 Absolute Nucleated RBC 0.00 Nucleated RBC % 0.0 ESR 54 H Sodium Potassium Chloride Carbon Dioxide Anion Gap BUN Creatinine Estimated GFR (MDRD) Glucose Calcium C-Reactive Protein Nasal Adenovirus (PCR) NOT DETECTED Nasal B. parapertussis DNA (PCR) NOT DETECTED Nasal Coronavir 229E PCR NOT DETECTED Nasal Coronavir HKU1 PCR NOT DETECTED Nasal Coronavir NL63 PCR NOT DETECTED Nasal Coronavir OC43 PCR NOT DETECTED Nasal Enterovir/Rhinovir PCR DETECTED A Nasal Influenza B PCR NOT DETECTED Nasal Influenza A PCR NOT DETECTED Nasal Parainfluen 1 PCR NOT DETECTED Nasal Parainfluen 2 PCR NOT DETECTED Nasal Parainfluen 3 PCR NOT DETECTED Nasal Parainfluen 4 PCR NOT DETECTED Nasal RSV (PCR) NOT DETECTED Nasal B.pertussis DNA PCR NOT DETECTED Nasal C.pneumoniae (PCR) NOT DETECTED Poli Human Metapneumo PCR NOT DETECTED Nasal M.pneumoniae (PCR) NOT DETECTED Nasal SARS-CoV-2 (PCR) NOT DETECTED 03/11/21 17:48 WBC RBC Hgb Hct MCV MCH MCHC RDW Plt Count MPV Neut # (Auto) Lymph # (Auto) Douglas # (Auto) Eos # (Auto) Baso # (Auto) Absolute Nucleated RBC Nucleated RBC % ESR Sodium 138 Potassium 4.1 Chloride 104 Carbon Dioxide 24 Anion Gap 10.0 BUN 23 H Creatinine 1.3 H Estimated GFR (MDRD) 53 L Glucose 246 H Calcium 8.9 C-Reactive Protein 7.4 H Nasal Adenovirus (PCR) Nasal B. parapertussis DNA (PCR) Nasal Coronavir 229E PCR Nasal Coronavir HKU1 PCR Nasal Coronavir NL63 PCR Nasal Coronavir OC43 PCR Nasal Enterovir/Rhinovir PCR Nasal Influenza B PCR Nasal Influenza A PCR Nasal Parainfluen 1 PCR Nasal Parainfluen 2 PCR Nasal Parainfluen 3 PCR Nasal Parainfluen 4 PCR Nasal RSV (PCR) Nasal B.pertussis DNA PCR Nasal C.pneumoniae (PCR) Poli Human Metapneumo PCR Nasal M.pneumoniae (PCR) Nasal SARS-CoV-2 (PCR) PD MEDICAL DECISION MAKING - ED course ED course: 80-year-old gentleman with type 2 diabetes presents with cellulitis that is failed outpatient treatment despite appropriate oral antibiotics and I spoke with Dr. Torres for admission at 5:44 PM. 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
[2021-03-11 17:55] LABS: BASOPHILS % (AUTO) 0.5 %; EOSINOPHILS # (AUTO) 0.2 10^3/uL (0.0-0.7); EOSINOPHILS % (AUTO) 2.3 %; HCT - HEMATOCRIT 41.1 % (42.0-52.0); HGB - HEMOGLOBIN 13.4 g/dL (14.0-18.0); LYMPHOCYTES % (AUTO) 25.4 %; MEAN CORPUSCULAR HEMOGLOBIN 29.6 pg (27.0-31.0); MEAN CORPUSCULAR HGB CONC 32.6 g/dL (32.0-36.0); MEAN CORPUSCULAR VOLUME 90.9 fL (80.0-94.0); MEAN PLATELET VOLUME 9.4 fL (7.4-11.4); MONOCYTES # (AUTO) 0.5 10^3/uL (0.0-1.0); MONOCYTES % (AUTO) 6.1 %; NEUTROPHILS # (AUTO) 5.2 10^3/uL (1.5-6.6); NEUTROPHILS % (AUTO) 65.2 %; PLT - PLATELET COUNT 213 10^3/uL (130-450); RED BLOOD COUNT 4.52 10^6/uL (4.70-6.10); RED CELL DISTRIBUTION WIDTH 14.1 % (12.0-15.0); WHITE BLOOD COUNT 7.9 x10^3/uL (4.8-10.8)
[2021-03-11] MEDS ORDERED: MORPHINE 2 MG/ML CARPUJECT IVP PRN (17:55)
[2021-03-11] MEDS ORDERED: ONDANSETRON ODT 4 MG TABLET TL PRN (17:55)
[2021-03-11] MEDS ORDERED: ONDANSETRON 4 MG/2 ML VIAL IVP PRN (17:55)
[2021-03-11] MEDS ORDERED: SODIUM CHLORIDE FLUSH 0.9% 10 ML SYRINGE IVP PRN (17:55)
[2021-03-11] MEDS ORDERED: TAMSULOSIN 0.4 MG CAPSULE PO STA (18:01)
--- NOTE | 2021-03-11 18:03 | HISTORY & PHYSICAL EXAMINATION ---
Chief Complaint - Chief Complaint Chief Complaint: hot leg getting worse History of Present Illness - Admitted From Admitted From:: home - History Obtained From Records Reviewed: [facility] and [facility] History obtained from: Dr. Oconnell and patient Exam Limitations: none - History of Present Illness HPI Comment/Other: He is a diabetic patient that was seen by Kenn Deleon in the ER in March 09 for an infected left leg. 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 When he was seen in the emergency room on the his temperature was 36.5. Blood pressure mildly elevated at 144/93. White cell count was mildly elevated at 11 with a sed rate of 48. He was put on clindamycin. Cultures were obtained of the wound. He grew out beta-hemolytic strep group A. Blood cultures were negative. He now returns to the emergency room where the redness and swelling was only on the anterior anderson and is now moved laterally and circumferentially on the toby kside getting worse, more hot, more tender. Today temperature is still 36.8. Blood pressure still elevated at 146/115. Dr. Oconnell has obtained labs but they are not ready yet. He says that physical exam clearly shows failure of the clindamycin and progression of the cellulitis in this diabetic male. As such the patient now admitted with cellulitis. History - Past Medical History Cardiovascular: reports: Hypertension, High cholesterol, Coronary artery disease (Fixed inf apical and anteroseptal defect on ETT ), Atrial fibrillation (Echo 06/04. EF 65-70%. RVSP normal. RV EF normal. Severe LAE. Trace aortic regurgitation, mild mitral regurgitation. ), Murmur Respiratory: reports: Sleep apnea, CPAP use, Other (Pulmonary nodule.CT May 2015 and October 2015 stable.) Neuro: reports: Other (Dizziness) Endocrine/Autoimmune: reports: Type 2 diabetes (with neuropathy, no retinopathy) : reports: Benign prostate hypertrophy HEENT: reports: Chronic vision loss, Chronic hearing loss Psych: reports: None Musculoskeletal: reports: Osteoarthritis (CHAZ on L 2010 and R 2012), Other (Chronic left shoulder pain due to massive rotator cuff tear and humeral head migration, s/p rep[air) Derm: reports: Other (Onychomycosis) MRSA Hx?: No - Past Surgical History Ortho: reports: Hip replacement, Other Derm: reports: Skin grafts - Family & Social History Family History Comment/Other: Father of [place] at age 75. Mother [place] age 58. 2 brothers with SD, 1 is . 1 lives in [place]. Sister is but he doesn't know what of. No children Living arrangement: At home Living Situation: With spouse/s.o. 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 Smoked until the age of 32. History of alcoholism and quit drinking 1970s. No recreational substance abuse. Lives in his own home with his . . - Substance History Use: Uses substance without health or social issues: NONE Abuse: Recurrent use of substance despite neg consequences: NONE Dependence: Experiences withdrawal or developed tolerances: NONE - POLST Patient has POLST: No POLST Status: Full Code Meds/Allgy - Home Medications Home Medications: Ambulatory Orders Medication Instructions Recorded Confirmed Losartan Potassium 100 mg PO DAILY 12/23/18 06/28/20 Simvastatin 40 mg PO QPM 12/23/18 06/28/20 Tamsulosin HCl [Flomax] 0.4 mg PO DAILY 12/23/18 06/28/20 Insulin Glargine,Hum.rec.anlog 25 unit SUBQ DAILY 06/28/20 06/28/20 [Basaglar Kwikpen U-100] Losartan Potassium [Cozaar] 100 mg PO DAILY 06/28/20 06/28/20 Rivaroxaban [Xarelto] 20 mg PO DAILY 06/28/20 06/28/20 hydroCHLOROthiazide [Hydrodiuril] 25 mg PO DAILY 06/28/20 06/28/20 Oxycodone HCl/Acetaminophen 1 - 2 each PO Q6H PRN #14 tablet 03/09/21 [Percocet 5-325 mg Tablet] clindamycin HCL [Cleocin HCl] 300 mg PO Q6H #40 cap 03/09/21 - Allergies Allergies/Adverse Reactions: Allergies Allergy/AdvReac Type Severity Reaction Status Date / Time No Known Drug Allergies Allergy Verified 03/09/21 17:16 Review of Systems - Constitutional Constitutional: reports: Fatigue, Fever, Chills, Malaise - Eyes Eyes: reports: Vision loss. denies: Pain, Irritation, Amaurosis, Blurred vision - Ears, Nose & Throat Ears, Nose & Throat: reports: Hearing loss, Postnasal drainage. denies: Ear pain, Hearing aids, Tinnitus, Vertigo - Cardiovascular Cariovascular: reports: Irregular heart rate, Palpitations, Edema, Exertional dyspnea. denies: Chest pain, Syncope, Decr. exercise tolerance - Respiratory Respiratory: reports: Cough, Snoring, SOB with exertion, Apnea. denies: Sputum production, Wheezing, SOB at rest - Gastrointestinal Gastrointestinal: reports: Reflux/heartburn. denies: Abdominal pain, Abdominal distention, Constipation, Diarrhea, Change in bowel habits, Black stools, Bloody stools - Genitourinary Genitourinary: reports: Nocturia (and decreased stream). denies: Dysuria, Frequency, Urgency, Hematuria - Musculoskeletal Musculoskeletal: reports: Stiffness, Joint pain (but L shoulder is doing great). 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 The only thing that slows him down is occasional joint pain. And right now this left leg.No durable medical equipment use. Exam - Vital Signs Reviewed Vital Signs: Yes Vital Signs: Vital Signs x48h Temp Pulse Resp BP Pulse Ox 03/11/21 17:22 36.8 C 78 16 146/115 H 96 03/11/21 17:20 36.8 C 78 16 146/115 H 96 - Physical Exam General Appearance: positive: No acute distress, Alert, Other (1 inch male who is 108.8 kg, very loud voice, laying flat in bed with a cold rag on his forehead to help him with the sweats and flushing) Eyes Bilateral: positive: PERRL, EOMI, Other (Eyelids heavy, and I think edematous but he says that he always looks this way) ENT: positive: No signs of dehydration Neck: positive: No JVD, Lymphadenopathy (R), Lymphadenopathy (L). negative: Stiff neck Respiratory: positive: No respiratory distress. negative: Wheezes, Rales, Rhonchi Cardiovascular: positive: Irregularly irregular, Systolic murmur. negative: Gallop/S4, Friction rub Abdomen: positive: Non-tender, Nml bowel sounds, No distention, Other (Large, mounded pannus difficult to assess for organomegaly) Skin: positive: Warm, Dry, Other (The entirety of the left anterior anderson is red, hot. You can feel the heat from inches away from the leg. Part of the skin is already blistered and starting to slough away. The redness extends laterally and medially circumferentially more on the medial side.) Extremities: positive: Pedal edema (Left leg is 2+. Right leg is 1+.) Neurologic/Psychiatric: positive: Oriented x3, CN's nml (2-12) (I think he is mildly deaf), Motor nml, Sensation nml Conclusion/Plan - Problem List (1) Cellulitis Conclusion/Plan: Failure of outpatient treatment. Culture grew out strep. Not responding to clindamycin. Patient has been empirically started on Ancef. He is a diabetic and I would consider vancomycin if he does not respond in the next 24 to 48 hours. Qualifiers: Site of cellulitis: extremity Site of cellulitis of extremity: lower extremity Laterality: left Qualified Code(s): L03.116 - Cellulitis of left lower limb (2) Failure of outpatient treatment Conclusion/Plan: This is a diabetic who has a spreading cellulitis in spite of clindamycin which should have covered staph and strep. Because of failure of outpatient treatment he now meets criteria for inpatient status (3) Type 2 diabetes mellitus with diabetic neuropathy, with long-term current use of insulin Conclusion/Plan: No retinopathy. No nephropathy. Plan: Check A1c Resume usual Lantus of 25 units at night Sliding scale insulin moderate before meals (4) HTN (hypertension) Conclusion/Plan: Consistently hypertensive with last visit and today. Currently on losartan with hydrochlorothiazide. We will add beta-rodolfo during his stay. Qualifiers: Hypertension type: primary hypertension Qualified Code(s): I10 - Essential (primary) hypertension (5) BPH (benign prostatic hyperplasia) Conclusion/Plan: Nocturia, decreased stream. Flomax will be resumed Qualifiers: Lower urinary tract symptom presence: symptoms present (6) Chronic atrial fibrillation Conclusion/Plan: On Xarelto. No rate lowering agent. We will resume the Xarelto. Because of this I do not have to do DVT prophylaxis with another agent. (7) Acute kidney injury superimposed on chronic kidney disease Conclusion/Plan: Mild. His usual creatinine is 1.1-1.2. Today he is 1.3. Plan: IV fluids. Hydrate. Recheck in the morning. Avoid nephrotoxic agents. (8) DIONTE (obstructive sleep apnea) Conclusion/Plan: We will see if he brought his machinery with him. If not, will ask family to bring it in for him. - Lab Results Lab results reviewed: Yes Fish Bones: 03/11/21 17:48 03/11/21 17:48 Core Measures - Anticipated LOS I expect patient to be DC'd or transferred within 96 hours.: Yes - DVT/VTE - Prophylaxis VTE/DVT Device ordered at admit?: Yes
[2021-03-11 18:16] LABS: CALCIUM 8.9 mg/dL (8.5-10.3); CREATININE 1.3 mg/dL (0.6-1.2); CRP - C-REACTIVE PROTEIN 7.4 mg/dL (0-1.0); POTASSIUM 4.1 mmol/L (3.5-5.0)
[2021-03-11 18:50] LABS: CORONAVIRUS 229E-RESP PCR NOT DETECTED; CORONAVIRUS HKU1-RESP PCR NOT DETECTED; CORONAVIRUS NL63-RESP PCR NOT DETECTED; CORONAVIRUS OC43-RESP PCR NOT DETECTED
[2021-03-11 18:51] LABS: B. PARAPERTUSSIS- RESP PCR PAN NOT DETECTED; B. PERTUSSIS- RESP PCR PANEL NOT DETECTED; C. PNEUMONIAE- RESP PCR PANEL NOT DETECTED; HUMAN METAPNEUMOVIRUS NOT DETECTED; INFLUENZA A- RESP PCR PANEL NOT DETECTED; INFLUENZA B - RESP PCR PANEL NOT DETECTED; M. PNEUMONIAE- RESP PCR PANEL NOT DETECTED; PARAINFLUENZA VIRUS 1 NOT DETECTED; PARAINFLUENZA VIRUS 2 NOT DETECTED; PARAINFLUENZA VIRUS 3 NOT DETECTED; PARAINFLUENZA VIRUS 4 NOT DETECTED; RHINOVIRUS/ENTEROVIRUS DETECTED; RSV- RESP PCR PANEL NOT DETECTED; SARS-CoV-2 -RESP PCR PANEL NOT DETECTED
[2021-03-11] MEDS: NS W/20 MEQ KCL 1,000 ML IV SCH (18:55)
[2021-03-11] MEDS: ATORVASTATIN 40 MG TABLET PO SCH (21:07)
[2021-03-11] MEDS: INSULIN GLARGINE 300 UNIT/3 ML PEN SUBQ SCH (21:08)
[2021-03-11] MEDS: INSULIN ASPART 300 UNIT/3 ML PEN SUBQ SCH (21:08)
[2021-03-12] MEDS: SODIUM CHLORIDE FLUSH 0.9% 10 ML SYRINGE IVP SCH ×4 (00:13→23:35)
[2021-03-12] MEDS: ceFAZolin 2 GM in SODIUM CHLORIDE 0.9% 100ML 100 ML IV SCH ×3 (02:06→18:09)
[2021-03-12] MEDS: NS W/20 MEQ KCL 1,000 ML IV SCH (05:08)
--- NOTE | 2021-03-12 08:24 | PROVIDER PROGRESS NOTE ---
Subjective - Prog Note Date Prog Note Date: 03/12/21 Prog Note Time: 11:19 - Subjective Pt reports feeling: Improved Subjective: He is alert. talkative. Loud voice of someone who is deaf. RN is prompting diabetic education as much as she can. Wound changed today and I was able to examine again no fevers, no WBC Current Medications - Current Medications Current Medications: Active Medications Acetaminophen (Acetaminophen 325 Mg Tablet) 650 mg PO Q4HR PRN PRN Reason: Pain 1 to 4 Atorvastatin Calcium (Atorvastatin 40 Mg Tablet) 20 mg PO QPM [facility] Last Admin: 03/11/21 21:07 Dose: 20 mg Documented by: Potassium Chloride/Sodium Chloride (Normal Saline 0.9% W/20 Meq Kcl) 1,000 mls @ 100 mls/hr IV .Q10H [facility] Stop: 03/12/21 13:59 Last Admin: 03/12/21 05:08 Dose: 100 mls/hr Documented by: Cefazolin Sodium 2 gm/ Sodium (Chloride) 100 mls @ 200 mls/hr IV Q8H [facility] Last Admin: 03/12/21 10:26 Dose: 200 mls/hr Documented by: Insulin Aspart (Insulin Aspart 300 Unit/3 Ml Pen) 1 - 9 unit SUBQ 0800,1200,1700,2100 [facility]; Protocol Last Admin: 03/11/21 21:08 Dose: 3 unit Documented by: Insulin Glargine (Insulin Glargine 300 Unit/3 Ml Pen) 25 unit SUBQ QPM [facility] Last Admin: 03/11/21 21:08 Dose: 25 unit Documented by: Losartan Potassium (Losartan 50 Mg Tablet) 100 mg PO DAILY [facility] Last Admin: 03/12/21 09:59 Dose: 100 mg Documented by: Morphine Sulfate (Morphine 2 Mg/Ml Carpuject) 2 mg IVP Q2HR PRN PRN Reason: Pain 8 to 10 Last Admin: 03/11/21 18:58 Dose: 2 mg Documented by: Ondansetron HCl (Ondansetron Odt 4 Mg Tablet) 4 mg TL Q6HR PRN PRN Reason: Nausea / Vomiting Ondansetron HCl (Ondansetron 4 Mg/2 Ml Vial) 4 mg IVP Q6HR PRN PRN Reason: Nausea / Vomiting Oxycodone HCl (Oxycodone 5 Mg Tablet) 5 mg PO Q4HR PRN PRN Reason: Pain 5 to 7 Rivaroxaban (Rivaroxaban 10 Mg Tablet) 20 mg PO QDDINNER [facility] Sodium Chloride (Sodium Chloride Flush 0.9% 10 Ml Syringe) 10 ml IVP PRN PRN PRN Reason: NEEDED PER PROVIDER ORDERS Sodium Chloride (Sodium Chloride Flush 0.9% 10 Ml Syringe) 10 ml IVP 0100,0 900,1700 [facility] Last Admin: 03/12/21 00:13 Dose: Not Given Documented by: Losartan Potassium 100 mg PO DAILY 12/23/18 Simvastatin 40 mg PO QPM 12/23/18 Tamsulosin HCl [Flomax] 0.4 mg PO DAILY 12/23/18 Insulin Glargine,Hum.rec.anlog [Basaglar Kwikpen U-100] 25 unit SUBQ DAILY 06/28/20 Rivaroxaban [Xarelto] 20 mg PO DAILY 06/28/20 hydroCHLOROthiazide [Hydrodiuril] 25 mg PO DAILY 06/28/20 Objective - Vital Signs/Intake & Output Reviewed Vital Signs: Yes Vital Signs: Vital Signs x48h Temp Pulse Resp BP Pulse Ox 03/12/21 07:57 36.5 C 88 20 141/90 H 95 Intake & Output: Intake & Output 03/09/21 03/10/21 03/11/21 03/12/21 23:59 23:59 23:59 23:59 Intake Total 500 1100 Output Total 450 1425 Balance 50 -325 - Objective General Appearance: positive: No acute distress, Alert, Other (tall large elderly man w a booming voice, laying in bed, watching TV) Eyes Bilateral: positive: PERRL, EOMI ENT: positive: No signs of dehydration Neck: positive: No JVD, Lymphadenopathy (R) (shotty), Lymphadenopathy (L) (shotty). negative: Stiff neck Respiratory: positive: No respiratory distress. negative: Wheezes, Rales, Rhonchi Cardiovascular: positive: Regular rate & rhythm. negative: Gallop/S4, Friction rub Abdomen: positive: Non-tender, No organomegaly, Nml bowel sounds, No distention, Other (large mounded abd panus) Skin: positive: Warm, Dry, Other (right leg w old, healed scaling wound from before. The left leg has had 50% reduction is geographic distribution of the redness and now it's all located on anterior anderson. LInes marked by RN. Has areas of skin loss already but you can see where he has skin that will peel off, joyce vert area) Extremities: positive: Full ROM, Pedal edema (right leg minimal, left leg was 2+ yesterday and 1+ today) Neurologic/Psychiatric: positive: Oriented x3, CN's nml (2-12), Motor nml (he lifts his leg up and holds it for us so we can remove bandage and look at wound) - Lab Results Fish Bones: 03/12/21 08:41 03/12/21 08:41 Other Labs: Lab Results x24hrs 03/12/21 03/11/21 03/11/21 Range/Units 07:52 20:49 17:48 WBC (4.8-10.8) x10^3/uL RBC (4.70-6.10) 10^6/uL Hgb (14.0-18.0) g/dL Hct (42.0-52.0) % MCV (80.0-94.0) fL MCH (27.0-31.0) pg MCHC (32.0-36.0) g/dL RDW (12.0-15.0) % Plt Count (130-450) 10^3/uL MPV (7.4-11.4) fL Neut # (Auto) (1.5-6.6) 10^3/uL Lymph # (Auto) (1.5-3.5) 10^3/uL [place] # (Auto) (0.0-1.0) 10^3/uL Eos # (Auto) (0.0-0.7) 10^3/uL Baso # (Auto) (0.0-0.1) 10^3/uL Absolute Nucleated RBC x10^3/uL Nucleated RBC % /100WBC ESR (0-20) mm/Hr Sodium 138 (135-145) mmol/L Potassium 4.1 (3.5-5.0) mmol/L Chloride 104 (101-111) mmol/L Carbon Dioxide 24 (21-32) mmol/L Anion Gap 10.0 (6-13) BUN 23 H (6-20) mg/dL Creatinine 1.3 H (0.6-1.2) mg/dL Estimated GFR (MDRD) 53 L (>89) Glucose 246 H (70-100) mg/dL POC Whole Bld Glucose 136 H 193 H (70 - 100) mg/dL Calcium 8.9 (8.5-10.3) mg/dL C-Reactive Protein 7.4 H (0-1.0) mg/dL Nasal Adenovirus (PCR) Nasal B. parapertussis DNA (PCR) Nasal Coronavir 229E PCR Nasal Coronavir HKU1 PCR Nasal Coronavir NL63 PCR Nasal Coronavir OC43 PCR Nasal Enterovir/Rhinovir PCR Nasal Influenza B PCR Nasal Influenza A PCR Nasal Parainfluen 1 PCR Nasal Parainfluen 2 PCR Nasal Parainfluen 3 PCR Nasal Parainfluen 4 PCR Nasal RSV (PCR) Nasal B.pertussis DNA PCR Nasal C.pneumoniae (PCR) Poli Human Metapneumo PCR Nasal M.pneumoniae (PCR) Nasal SARS-CoV-2 (PCR) 03/11/21 03/11/21 03/11/21 Range/Units 17:48 17:48 17:30 WBC 7.9 (4.8-10.8) x10^3/uL RBC 4.52 L (4.70-6.10) 10^6/uL Hgb 13.4 L (14.0-18.0) g/dL Hct 41.1 L (42.0-52.0) % MCV 90.9 (80.0-94.0) fL MCH 29.6 (27.0-31.0) pg MCHC 32.6 (32.0-36.0) g/dL RDW 14.1 (12.0-15.0) % Plt Count 213 (130-450) 10^3/uL MPV 9.4 (7.4-11.4) fL Neut # (Auto) 5.2 (1.5-6.6) 10^3/uL Lymph # (Auto) 2.0 (1.5-3.5) 10^3/uL [place] # (Auto) 0.5 (0.0-1.0) 10^3/uL Eos # (Auto) 0.2 (0.0-0.7) 10^3/uL Baso # (Auto) 0.0 (0.0-0.1) 10^3/uL Absolute Nucleated RBC 0.00 x10^3/uL Nucleated RBC % 0.0 /100WBC ESR 54 H (0-20) mm/Hr Sodium (135-145) mmol/L Potassium (3.5-5.0) mmol/L Chloride (101-111) mmol/L Carbon Dioxide (21-32) mmol/L Anion Gap (6-13) BUN (6-20) mg/dL Creatinine (0.6-1.2) mg/dL Estimated GFR (MDRD) (>89) Glucose (70-100) mg/dL POC Whole Bld Glucose (70 - 100) mg/dL Calcium (8.5-10.3) mg/dL C-Reactive Protein (0-1.0) mg/dL Nasal Adenovirus (PCR) NOT DETECTED Nasal B. parapertussis DNA (PCR) NOT DETECTED Nasal Coronavir 229E PCR NOT DETECTED Nasal Coronavir HKU1 PCR NOT DETECTED Nasal Coronavir NL63 PCR NOT DETECTED Nasal Coronavir OC43 PCR NOT DETECTED Nasal Enterovir/Rhinovir PCR DETECTED A Nasal Influenza B PCR NOT DETECTED Nasal Influenza A PCR NOT DETECTED Nasal Parainfluen 1 PCR NOT DETECTED Nasal Parainfluen 2 PCR NOT DETECTED Nasal Parainfluen 3 PCR NOT DETECTED Nasal Parainfluen 4 PCR NOT DETECTED Nasal RSV (PCR) NOT DETECTED Nasal B.pertussis DNA PCR NOT DETECTED Nasal C.pneumoniae (PCR) NOT DETECTED Poli Human Metapneumo PCR NOT DETECTED Nasal M.pneumoniae (PCR) NOT DETECTED Nasal SARS-CoV-2 (PCR) NOT DETECTED ABX Reporting Has patient been on IV antibiotics over the past 48 hours?: Yes Assessment/Plan - Problem List (1) Cellulitis Impression: Failure of outpatient treatment. Culture grew out strep. Not responding to c lindamycin. Patient has been empirically started on Ancef. He is a diabetic and I would consider vancomycin if he does not respond in the next 24 to 48 hours. But today, his exam is much much improved. He continues without fever or elevated WBC. I expect he will lose more skin in the next day or two. the wound is already pealing more today. Less oozing and drainage today. Bandage only slightly wet. Plan: Day #2/ Ancef Tomorrow change to po and then see if he can be dc'd 03/14 with wound care. Continue the xeroform coverage of wound and wrapped in kerlex. Qualifiers: Site of cellulitis: extremity Site of cellulitis of extremity: lower extremity Laterality: left Qualified Code(s): L03.116 - Cellulitis of left lower limb (2) Failure of outpatient treatment Conclusion/Plan: This is a diabetic who has a spreading cellulitis in spite of clindamycin which should have covered staph and strep. Because of failure of outpatient treatment he now meets criteria for inpatient status (3) Type 2 diabetes mellitus with diabetic neuropathy, with long-term current use of insulin Conclusion/Plan: No retinopathy. No nephropathy. Resumed usual Lantus of 25 units at night Sliding scale insulin moderate before meals A1c result is pending Glucose: Glucose yesterday 193, 192. Today he is 136 and 150. No changes planned for today's managment (4) HTN (hypertension) Conclusion/Plan: Consistently hypertensive with last visit and today. Currently on losartan with hydrochlorothiazide. We will add beta-rodolfo Today 140-145 systolic. Metoprolol 25 bid. Qualifiers: Hypertension type: primary hypertension Qualified Code(s): I10 - Essential (primary) hypertension (5) BPH (benign prostatic hyperplasia) Conclusion/Plan: Nocturia, decreased stream. Flomax will be resumed Qualifiers: Lower urinary tract symptom presence: symptoms present (6) Chronic atrial fibrillation Conclusion/Plan: On Xarelto. No rate lowering agent. We will resume the Xarelto. Because of this I do not have to do DVT prophylaxis with another agent. (7) Acute kidney injury superimposed on chronic kidney disease Conclusion/Plan: Mild. His usual creatinine is 1.1-1.2. Admit was 1.3>>1.1 today. Plan: Continue IV fluids for hydration. Avoid nephrotoxic agents. Plan to dc IVF after 2 liters of NS. Completes around 1300 today. (8) DIONTE (obstructive sleep apnea) Conclusion/Plan: We will see if he brought his machinery with him. If not, will ask family to bring it in for him. Qualifiers: Qualified Code(s): L03.116 - Cellulitis of left lower limb
[2021-03-12 08:49] LABS: BASOPHILS % (AUTO) 0.3 %; EOSINOPHILS # (AUTO) 0.2 10^3/uL (0.0-0.7); EOSINOPHILS % (AUTO) 3.6 %; HCT - HEMATOCRIT 39.7 % (42.0-52.0); HGB - HEMOGLOBIN 12.6 g/dL (14.0-18.0); MEAN CORPUSCULAR HEMOGLOBIN 29.4 pg (27.0-31.0); MEAN CORPUSCULAR HGB CONC 31.7 g/dL (32.0-36.0); MEAN CORPUSCULAR VOLUME 92.8 fL (80.0-94.0); MEAN PLATELET VOLUME 9.3 fL (7.4-11.4); MONOCYTES # (AUTO) 0.4 10^3/uL (0.0-1.0); MONOCYTES % (AUTO) 6.2 %; NEUTROPHILS # (AUTO) 3.9 10^3/uL (1.5-6.6); NEUTROPHILS % (AUTO) 59.3 %; PLT - PLATELET COUNT 205 10^3/uL (130-450); RED BLOOD COUNT 4.28 10^6/uL (4.70-6.10); RED CELL DISTRIBUTION WIDTH 14.2 % (12.0-15.0); WHITE BLOOD COUNT 6.6 x10^3/uL (4.8-10.8)
[2021-03-12 08:59] LABS: CALCIUM 8.8 mg/dL (8.5-10.3); CREATININE 1.1 mg/dL (0.6-1.2); POTASSIUM 4.5 mmol/L (3.5-5.0)
[2021-03-12] MEDS ORDERED: ceFAZolin 1 GM VIAL ONE ×2 (09:40→18:08)
[2021-03-12] MEDS: LOSARTAN 50 MG TABLET PO SCH (09:59)
--- NOTE | 2021-03-12 11:47 | PHARMACY PROGRESS NOTE ---
- Best Possible Medication History Admit Date and Time: 03/11/21 1264 Processed by: Pharmacy Medication History completed: Yes Patient Interview: Completed Secondary Source(s): Physician records, Pharmacy records, Insurance records As the person ultimately responsible for medication therapy, providers are able to order a medication from an existing home medication list in [facility] via the "Reconcile Routine" prior to Confirmation of that medication by computer support specialist instructor. Such practice is discouraged except when the physician, in their clinical judgment, deems that a medical need exists for a medication without regard to previous use.
[2021-03-12] MEDS: INSULIN ASPART 300 UNIT/3 ML PEN SUBQ SCH ×4 (11:58→21:13)
[2021-03-12] MEDS: METOPROLOL TARTRATE 25 MG TABLET PO SCH ×2 (12:16→21:21)
[2021-03-12 13:30] LABS: ESTIMATED AVERAGE GLUCOSE 189 mg/dL (70-100); HEMOGLOBIN A1c% 8.2 % (4.27-6.07)
[2021-03-12] MEDS: ACETAMINOPHEN 325 MG TABLET PO PRN ×2 (15:07→22:11)
[2021-03-12] MEDS: oxyCODONE 5 MG TABLET PO PRN ×2 (15:07→22:11)
[2021-03-12] MEDS: RIVAROXABAN 10 MG TABLET PO SCH (16:55)
[2021-03-12] MEDS: INSULIN GLARGINE 300 UNIT/3 ML PEN SUBQ SCH (21:21)
[2021-03-12] MEDS: ATORVASTATIN 40 MG TABLET PO SCH (21:22)
[2021-03-13] MEDS: ceFAZolin 2 GM in SODIUM CHLORIDE 0.9% 100ML 100 ML IV SCH (02:10)
[2021-03-13 06:06] LABS: BASOPHILS % (AUTO) 0.5 %; EOSINOPHILS # (AUTO) 0.3 10^3/uL (0.0-0.7); EOSINOPHILS % (AUTO) 3.4 %; HCT - HEMATOCRIT 41.1 % (42.0-52.0); HGB - HEMOGLOBIN 12.8 g/dL (14.0-18.0); LYMPHOCYTES # (AUTO) 2.8 10^3/uL (1.5-3.5); MEAN CORPUSCULAR HEMOGLOBIN 29.1 pg (27.0-31.0); MEAN CORPUSCULAR HGB CONC 31.1 g/dL (32.0-36.0); MEAN CORPUSCULAR VOLUME 93.4 fL (80.0-94.0); MEAN PLATELET VOLUME 9.5 fL (7.4-11.4); MONOCYTES # (AUTO) 0.5 10^3/uL (0.0-1.0); MONOCYTES % (AUTO) 6.2 %; NEUTROPHILS % (AUTO) 52.2 %; PLT - PLATELET COUNT 233 10^3/uL (130-450); RED CELL DISTRIBUTION WIDTH 14.1 % (12.0-15.0); WHITE BLOOD COUNT 7.6 x10^3/uL (4.8-10.8)
[2021-03-13 06:25] LABS: CALCIUM 8.9 mg/dL (8.5-10.3); CREATININE 1.2 mg/dL (0.6-1.2); CRP - C-REACTIVE PROTEIN 3.2 mg/dL (0-1.0); POTASSIUM 4.7 mmol/L (3.5-5.0)
--- NOTE | 2021-03-13 08:28 | PROVIDER PROGRESS NOTE ---
Subjective - Prog Note Date Prog Note Date: 03/13/21 Prog Note Time: 08:30 - Subjective Pt reports feeling: Improved Subjective: he feels pretty good. He tells me that when he first came in, and if his leg was dependent, it would just throb like crazy. The throbbing is gone. He still has the sensation of hot/needlelike pain over the open wound areas. But he can tolerate it. He asked if he can take a shower. Current Medications - Current Medications Current Medications: Active Medications Acetaminophen (Acetaminophen 325 Mg Tablet) 650 mg PO Q4HR PRN PRN Reason: Pain 1 to 4 Last Admin: 03/12/21 22:11 Dose: 650 mg Documented by: Atorvastatin Calcium (Atorvastatin 40 Mg Tablet) 20 mg PO QPM [facility] Last Admin: 03/12/21 21:22 Dose: 20 mg Documented by: Cephalexin (Cephalexin 250 Mg Capsule) 500 mg PO Q6HR [facility] Insulin Aspart (Insulin Aspart 300 Unit/3 Ml Pen) 1 - 9 unit SUBQ 0800,1200,1700,2100 [facility]; Protocol Last Admin: 03/12/21 21:13 Dose: Not Given Documented by: Insulin Glargine (Insulin Glargine 300 Unit/3 Ml Pen) 25 unit SUBQ QPM [facility] Last Admin: 03/12/21 21:21 Dose: 25 unit Documented by: Losartan Potassium (Losartan 50 Mg Tablet) 100 mg PO DAILY [facility] Last Admin: 03/12/21 09:59 Dose: 100 mg Documented by: Metoprolol Tartrate (Metoprolol Tartrate 25 Mg Tablet) 25 mg PO BID [facility] Last Admin: 03/12/21 21:21 Dose: 25 mg Documented by: Morphine Sulfate (Morphine 2 Mg/Ml Carpuject) 2 mg IVP Q2HR PRN PRN Reason: Pain 8 to 10 Last Admin: 03/11/21 18:58 Dose: 2 mg Documented by: Ondansetron HCl (Ondansetron Odt 4 Mg Tablet) 4 mg TL Q6HR PRN PRN Reason: Nausea / Vomiting Ondansetron HCl (Ondansetron 4 Mg/2 Ml Vial) 4 mg IVP Q6HR PRN PRN Reason: Nausea / Vomiting Oxycodone HCl (Oxycodone 5 Mg Tablet) 5 mg PO Q4HR PRN PRN Reason: Pain 5 to 7 Last Admin: 03/12/21 22:11 Dose: 5 mg Documented by: Rivaroxaban (Rivaroxaban 10 Mg Tablet) 20 mg PO QDDINNER [facility] Last Admin: 03/12/21 16:55 Dose: 20 mg Documented by: Sodium Chloride (Sodium Chloride Flush 0.9% 10 Ml Syringe) 10 ml IVP PRN PRN PRN Reason: NEEDED PER PROVIDER ORDERS Sodium Chloride (Sodium Chloride Flush 0.9% 10 Ml Syringe) 10 ml IVP 0100,0900,1700 [facility] Last Admin: 03/12/21 23:35 Dose: 10 ml Documented by: Losartan Potassium 100 mg PO DAILY 12/23/18 Simvastatin 40 mg PO QPM 12/23/18 Tamsulosin HCl [Flomax] 0.4 mg PO DAILY 12/23/18 Insulin Glargine,Hum.rec.anlog [Basaglar Kwikpen U-100] 25 unit SUBQ DAILY 06/28/20 Rivaroxaban [Xarelto] 20 mg PO QDDINNER 06/28/20 hydroCHLOROthiazide [Hydrodiuril] 25 mg PO DAILY 06/28/20 Metoprolol/Hydrochlorothiazide [Metoprolol-Hctz 50-25 mg Tab] 1 tab PO DAILY 03/12/21 Objective - Vital Signs/Intake & Output Reviewed Vital Signs: Yes Vital Signs: Vital Signs x48h Temp Pulse Resp BP Pulse Ox 03/13/21 07:29 36.4 C L 69 18 125/93 H 95 Intake & Output: Intake & Output 03/10/21 03/11/21 03/12/21 03/13/21 23:59 23:59 23:59 23:59 Intake Total 500 4380 400 Output Total 450 3275 1100 Balance 50 1105 -700 - Objective General Appearance: positive: Alert, Other (Tall elderly gentleman who is getting up to go to the bathroom by himself. I watched him brushes teeth, wash his hands and get back in the chair. He has a little bit unsteadiness of his ga it. Uses the berry for light touch, or the bed rail for light touch to balance himself.) Eyes Bilateral: positive: PERRL, EOMI ENT: positive: No signs of dehydration Neck: positive: No JVD. negative: Stiff neck Respiratory: positive: No respiratory distress. negative: Wheezes, Rales, Rhonchi Cardiovascular: positive: Regular rate & rhythm. negative: Gallop/S4, Friction rub Abdomen: positive: Non-tender, No organomegaly, Nml bowel sounds, No distention Skin: positive: Other (The left lower extremity looks great. The geographic redness, heat that was still present yesterday and that hd improved from admission now completely gone today. The pen markings from where the cellulitis extended to what it is today show excellent results where the cellulitis has shrunk, shrun) Extremities: positive: Full ROM, No pedal edema, Other (The right leg has areas of previously healed skin tears. Some dried crusting areas. No active infection or skin breakdown there.) Neurologic/Psychiatric: positive: Oriented x3, CN's nml (2-12). negative: Motor nml (slight ataxia) - Lab Results Fish Bones: 03/13/21 05:35 03/13/21 05:35 Other Labs: Lab Results x24hrs 03/13/21 03/13/21 03/13/21 Range/Units 07:24 05:35 05:35 WBC (4.8-10.8) x10^3/uL RBC (4.70-6.10) 10^6/uL Hgb (14.0-18.0) g/dL Hct (42.0-52.0) % MCV (80.0-94.0) fL MCH (27.0-31.0) pg MCHC (32.0-36.0) g/dL RDW (12.0-15.0) % Plt Count (130-450) 10^3/uL MPV (7.4-11.4) fL Neut # (Auto) (1.5-6.6) 10^3/uL Lymph # (Auto) (1.5-3.5) 10^3/uL [place] # (Auto) (0.0-1.0) 10^3/uL Eos # (Auto) (0.0-0.7) 10^3/uL Baso # (Auto) (0.0-0.1) 10^3/uL Absolute Nucleated RBC x10^3/uL Nucleated RBC % /100WBC ESR 65 H (0-20) mm/Hr Sodium 139 (135-145) mmol/L Potassium 4.7 (3.5-5.0) mmol/L Chloride 104 (101-111) mmol/L Carbon Dioxide 27 (21-32) mmol/L Anion Gap 8.0 (6-13) BUN 17 (6-20) mg/dL Creatinine 1.2 (0.6-1.2) mg/dL Estimated GFR (MDRD) 59 L (>89) Glucose 109 H (70-100) mg/dL POC Whole Bld Glucose 98 (70 - 100) mg/dL Estimat Average Glucose (70-100) mg/dL Hemoglobin A1c % (4.27-6.07) % Calcium 8.9 (8.5-10.3) mg/dL C-Reactive Protein 3.2 H (0-1.0) mg/dL 03/13/21 03/12/21 03/12/21 Range/Units 05:35 20:58 16:36 WBC 7.6 (4.8-10.8) x10^3/uL RBC 4.40 L (4.70-6.10) 10^6/uL Hgb 12.8 L (14.0-18.0) g/dL Hct 41.1 L (42.0-52.0) % MCV 93.4 (80.0-94.0) fL MCH 29.1 (27.0-31.0) pg MCHC 31.1 L (32.0-36.0) g/dL RDW 14.1 (12.0-15.0) % Plt Count 233 (130-450) 10^3/uL MPV 9.5 (7.4-11.4) fL Neut # (Auto) 4.0 (1.5-6.6) 10^3/uL Lymph # (Auto) 2.8 (1.5-3.5) 10^3/uL [place] # (Auto) 0.5 (0.0-1.0) 10^3/uL Eos # (Auto) 0.3 (0.0-0.7) 10^3/uL Baso # (Auto) 0.0 (0.0-0.1) 10^3/uL Absolute Nucleated RBC 0.00 x10^3/uL Nucleated RBC % 0.0 /100WBC ESR (0-20) mm/Hr Sodium (135-145) mmol/L Potassium (3.5-5.0) mmol/L Chloride (101-111) mmol/L Carbon Dioxide (21-32) mmol/L Anion Gap (6-13) BUN (6-20) mg/dL Creatinine (0.6-1.2) mg/dL Estimated GFR (MDRD) (>89) Glucose (70-100) mg/dL POC Whole Bld Glucose 99 122 H (70 - 100) mg/dL Estimat Average Glucose (70-100) mg/dL Hemoglobin A1c % (4.27-6.07) % Calcium (8.5-10.3) mg/dL C-Reactive Protein (0-1.0) mg/dL 03/12/21 03/12/21 03/12/21 Range/Units 08:41 08:41 05:17 WBC 6.6 (4.8-10.8) x10^3/uL RBC 4.28 L (4.70-6.10) 10^6/uL Hgb 12.6 L (14.0-18.0) g/dL Hct 39.7 L (42.0-52.0) % MCV 92.8 (80.0-94.0) fL MCH 29.4 (27.0-31.0) pg MCHC 31.7 L (32.0-36.0) g/dL RDW 14.2 (12.0-15.0) % Plt Count 205 (130-450) 10^3/uL MPV 9.3 (7.4-11.4) fL Neut # (Auto) 3.9 (1.5-6.6) 10^3/uL Lymph # (Auto) 2.0 (1.5-3.5) 10^3/uL [place] # (Auto) 0.4 (0.0-1.0) 10^3/uL Eos # (Auto) 0.2 (0.0-0.7) 10^3/uL Baso # (Auto) 0.0 (0.0-0.1) 10^3/uL Absolute Nucleated RBC 0.00 x10^3/uL Nucleated RBC % 0.0 /100WBC ESR (0-20) mm/Hr Sodium 139 (135-145) mmol/L Potassium 4.5 (3.5-5.0) mmol/L Chloride 105 (101-111) mmol/L Carbon Dioxide 26 (21-32) mmol/L Anion Gap 8.0 (6-13) BUN 18 (6-20) mg/dL Creatinine 1.1 (0.6-1.2) mg/dL Estimated GFR (MDRD) 65 L (>89) Glucose 170 H (70-100) mg/dL POC Whole Bld Glucose (70 - 100) mg/dL Estimat Average Glucose 189 H (70-100) mg/dL Hemoglobin A1c % 8.2 H (4.27-6.07) % Calcium 8.8 (8.5-10.3) mg/dL C-Reactive Protein (0-1.0) mg/dL ABX Reporting Has patient been on IV antibiotics over the past 48 hours?: Yes Assessment/Plan - Problem List (1) Cellulitis Impression: Failure of outpatient treatment. Culture grew out strep. Not responding to clindamycin. Patient has been empirically started on Ancef. He is a diabetic and I would consider vancomycin if he does not respond in the next 24 to 48 hours. but on the second day of stay, his exam had improved quite a bit. He continues without fever or elevated WBC. He still had some oozing yesterday with some redness of the anterior anderson. today the redness is gone and just down to only skin loss and ulcers that are not pressure ulcers. Plan: Day #3/7 Ancef Change to po Keflex today and then see if he can be dc'd 03/14 with wound care. Continue the xeroform coverage of wound and wrapped in kerlex. He is convinced his can take care of these and asks about showers. I have told him he can take a shower, but no baths or hot tubs, dry the wound very well. Put xeroform on top then wrap with kerlex. Qualifiers: Site of cellulitis: extremity Site of cellulitis of extremity: lower extremity Laterality: left Qualified Code(s): L03.116 - Cellulitis of left lower limb (2) Failure of outpatient treatment Conclusion/Plan: This is a diabetic who has a spreading cellulitis in spite of clindamycin which should have covered staph and strep. Because of failure of outpatient treatment he now meets criteria for inpatient status (3) Type 2 diabetes mellitus with diabetic neuropathy, with long-term current use of insulin Conclusion/Plan: No retinopathy. No nephropathy. Resumed usual Lantus of 25 units at night Sliding scale insulin moderate before meals A1c result is pending Glucose yesterday 150, 136, 122, 99. This morning he is 98. No changes planned for today's managment (4) HTN (hypertension) Conclusion/Plan: Consistently hypertensive with last visit and today. Currently on losartan with hydrochlorothiazide. Metoprolol 25 bid added. I didn't add norvasc since it may case edema and wanted to avoid that in his legs for now. With addition of metoprolol his blood pressure is 117 225 systolic. Better control. Qualifiers: Hypertension type: primary hypertension Qualified Code(s): I10 - Essential (primary) hypertension (5) BPH (benign prostatic hyperplasia) Conclusion/Plan: Nocturia, decreased stream. Flomax will be resumed Qualifiers: Lower urinary tract symptom presence: symptoms present (6) Chronic atrial fibrillation Conclusion/Plan: Now on metoprolol. On Xarelto. Because of this I do not have to do DVT prophylaxis with another agent. (7) Acute kidney injury superimposed on chronic kidney disease Conclusion/Plan: Mild. His usual creatinine is 1.1-1.2. Admit was 1.3>>1.1>>1.2 today. Plan: Had 2 liters of NS and stopped yesterday. Creat did come up by 0.1 but that is probably lab variation and not clinically validated by exam. Avoid nephrotoxic agents. (8) DIONTE (obstructive sleep apnea) Conclusion/Plan: We will see if he brought his machinery with him. If not, will ask family to bring it in for him. Qualifiers: Qualified Code(s): L03.116 - Cellulitis of left lower limb
[2021-03-13] MEDS: LOSARTAN 50 MG TABLET PO SCH (08:57)
[2021-03-13] MEDS: METOPROLOL TARTRATE 25 MG TABLET PO SCH ×2 (08:57→20:38)
[2021-03-13] MEDS: INSULIN ASPART 300 UNIT/3 ML PEN SUBQ SCH ×4 (08:58→20:35)
[2021-03-13] MEDS: cephALEXin 250 MG CAPSULE PO SCH ×4 (08:58→23:38)
[2021-03-13] MEDS: SODIUM CHLORIDE FLUSH 0.9% 10 ML SYRINGE IVP SCH ×3 (08:58→23:37)
[2021-03-13] MEDS: RIVAROXABAN 10 MG TABLET PO SCH (17:46)
[2021-03-13] MEDS: INSULIN GLARGINE 300 UNIT/3 ML PEN SUBQ SCH (20:36)
[2021-03-13] MEDS: ATORVASTATIN 40 MG TABLET PO SCH (20:38)
[2021-03-14] MEDS: cephALEXin 250 MG CAPSULE PO SCH (05:35)
[2021-03-14 05:42] LABS: BASOPHILS # (AUTO) 0.1 10^3/uL (0.0-0.1); BASOPHILS % (AUTO) 0.8 %; EOSINOPHILS # (AUTO) 0.2 10^3/uL (0.0-0.7); EOSINOPHILS % (AUTO) 3.1 %; HCT - HEMATOCRIT 39.4 % (42.0-52.0); HGB - HEMOGLOBIN 12.9 g/dL (14.0-18.0); LYMPHOCYTES # (AUTO) 2.2 10^3/uL (1.5-3.5); LYMPHOCYTES % (AUTO) 28.1 %; MEAN CORPUSCULAR HEMOGLOBIN 29.7 pg (27.0-31.0); MEAN CORPUSCULAR HGB CONC 32.7 g/dL (32.0-36.0); MEAN CORPUSCULAR VOLUME 90.8 fL (80.0-94.0); MEAN PLATELET VOLUME 9.1 fL (7.4-11.4); MONOCYTES # (AUTO) 0.5 10^3/uL (0.0-1.0); NEUTROPHILS # (AUTO) 4.8 10^3/uL (1.5-6.6); NEUTROPHILS % (AUTO) 61.4 %; PLT - PLATELET COUNT 215 10^3/uL (130-450); RED BLOOD COUNT 4.34 10^6/uL (4.70-6.10); RED CELL DISTRIBUTION WIDTH 13.8 % (12.0-15.0); WHITE BLOOD COUNT 7.7 x10^3/uL (4.8-10.8)
[2021-03-14 05:50] LABS: CREATININE 1.1 mg/dL (0.6-1.2); POTASSIUM 4.3 mmol/L (3.5-5.0)
[2021-03-14 08:25] VITALS: BP 119/95
--- NOTE | 2021-03-14 08:28 | Discharge Plan ---
Discharge Plan Problem Reviewed?: Yes Disposition: Home, Self Care Condition: Good Prescriptions: cephALEXin [Keflex] 500 mg PO Q6HR #32 cap Adhesive Bandage [Bandages] 1 each TP DAILY #6 bandage Bismuth Tribromoph/Petrolatum [Xeroform Non-Occlusive 4"X9'] 1 each TP DAILY #1 bandage Diet: Diabetic Activity Restrictions: Activity as Tolerated Shower Restrictions: No Driving Restrictions: No Instruction Topics: Cephalexin tablets or capsules, Cellulitis Dc, Dressing Xeroform Dc Health Concerns: You are a very active gentleman and scratched your leg while riding on a tractor. The leg became infected and you went to the emergency room March 09. You were put on antibiotics. In spite of that the leg became even more infected, more red and hot. He returned to the emergency room on March 11 and we admitted you for severe leg infection. The wound is growing out stretococcus. You responded very well to a common antibiotic called Ancef. We switched you to the pill version of it called Keflex and you have done well with that as well. While you were here, your diabetes was managed with insulin. You had daily dressing changes to the wound. Plan of Treatment: 1 you stated repeatedly that your can take care of the wound. We want you to take a daily shower. Do not bathe or soak the leg. Just wash it with soap and water and do not let it soak in water for too long. Dry it very, very, very well. Place the Xerofoam yellow oily bandage on top of the wound. Then wrap your leg with white bandage. Do this daily. 2. Make sure that your glucose is controlled. Glucose above 135 interferes with wound healing. Make sure your glucose stays below 135 before meals and at bedtime. 3. Please see your primary care provider, Lu Siddiqi, in the next week. It is very important that your wound be looked at. Care Goals: To have your leg completely healed. And to have your sugars under good control. Assessment: Patient promises that he understands her care goals and will follow through. No Smoking: If you smoke, Please STOP! Call for help. Follow-up with: Olga Siddiqi DO [Primary Care Provider] -
--- NOTE | 2021-03-14 08:37 | DISCHARGE SUMMARY ---
Discharge Summary Admit Date: 03/11/21 Discharge Date: 03/14/21 Discharging Provider: Cathy Torres MD Primary Care Provider: Olga Contreras MD Code Status: Attempt Resuscitation Condition at Discharge: Good - HPI History of Present Illness: He is a diabetic patient that was seen by Kenn Deleon in the ER in March 09 for an infected left leg. 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 When he was seen in the emergency room on the his temperature was 36.5. Blood pressure mildly elevated at 144/93. White cell count was mildly elevated at 11 with a sed rate of 48. He was put on clindamycin. Cultures were obtained of the wound. He grew out beta-hemolytic strep group A. Blood cultures were negative. He now returns to the emergency room where the redness and swelling was only on the anterior anderson and is now moved laterally and circumferentially on the backside getting worse, more hot, more tender. Today temperature is still 36.8. Blood pressure still elevated at 146/115. Dr. Oconnell has obtained labs but they are not ready yet. He says that physical exam clearly shows failure of the clindamycin and progression of the cellulitis in this diabetic male. As such the patient now admitted with cellulitis. - Past Medical History Cardiovascular: reports: Hypertension, High cholesterol, Coronary artery disease (Fixed inf apical and anteroseptal defect on ETT ), Atrial fibrillation (Echo 06/04. EF 65-70%. RVSP normal. RV EF normal. Severe LAE. Trace aortic regurgitation, mild mitral regurgitation. ), Murmur Respiratory: reports: Sleep apnea, CPAP use, Other (Pulmonary nodule.CT May 2015 and October 2015 stable.) Neuro: reports: Other (Dizziness) Endocrine/Autoimmune: reports: Type 2 diabetes (with neuropathy, no retinopathy) : reports: Benign prostate hypertrophy HEENT: reports: Chronic vision loss, Chronic hearing loss Psych: reports: None Musculoskeletal: reports: Osteoarthritis (CHAZ on L 2010 and 2012), Other (Chronic left shoulder pain due to massive rotator cuff tear and humeral head migration, s/p rep[air) Derm: reports: Other (Onychomycosis) MRSA Hx?: No - Past Surgical History Ortho: reports: Hip replacement, Other Derm: reports: Skin grafts - HOSPITAL COURSE Hospital Course: The patient was placed on empiric antibiotic therapy to cover the culture that grew out from March 09 which was strep. He responded very nicely to Ancef. Within 48 hours there was clear shrinking of the geographical distribution of the red, hot, weeping surface. By the day before discharge all the redness had dissipated and he was left with uninfected skin but 5 areas of loss of skin down to fat. His pain was gone. No more throbbing dependent ache. But the open wounds felt like needle pricks stabbing them. He was very adamant that his could take care of these wounds. He did not want to go to wound care, he did not want to have home health. As such she was taught how to clean the wound daily with shower. Wash with soap. Dry it very well. Cut Xeroform dressing to cover the wound. Then wrap it with Kerlix. He is getting be discharged with 4 more days of Keflex to complete 7 to 8 days of therapy. During his stay his diabetes was managed with sliding scale insulin, and Lantus. Blood pressure was managed with his metoprolol and losartan. Xarelto was continued. There were no other complications and he did very well. On the day of discharge temperature was 36.6. Heart rate 74. Blood pressure 141/96. Respirations 20. 94% on room air. He is 6 foot 2 inch tall weighs 130 kg. He is a tall elderly gentleman with a slight shuffling gait, wide-based, and sometimes touches the berry and the base of the bed for balance. Neck is supple with shotty adenopathy. Lungs are clear to auscultation and percussion. PMI is normally placed and he has a regular rate and rhythm when I hear him. This is in spite of a history of A. fib. The right lower extremity has areas of scaling and crustiness where previous lacerations have healed. He states he likes to leave that crustiness onto the last possible moment when it falls off on its own. The left anterior anderson still has areas of skin loss, slight edema from the red, hot, weeping cellulitis that was present on admission. But all the redness is dissipated. Slight edema around those malleoli. The right is nonedematous. He is hard of hearing. And probably needs glasses because he is always squinting at you to look. He is discharged in stable condition with greater than 30 minutes spent coordinating discharge and instructing on wound management. I told him to go see his primary care provider in follow-up in the next week. I have also asked him to call his primary care provider office if he has recurrence of redness, heat, swelling. If he has fevers, shaking chills to go to the emergency room. - ALLERGIES Allergies/Adverse Reactions: Allergies Allergy/AdvReac Type Severity Reaction Status Date / Time No Known Drug Allergies Allergy Verified 03/09/21 17:16 - MEDICATIONS Home Medications: Ambulatory Orders Medication Instructions Recorded Confirmed Losartan Potassium 100 mg PO DAILY 12/23/18 03/12/21 Simvastatin 40 mg PO QPM 12/23/18 03/12/21 Tamsulosin HCl [Flomax] 0.4 mg PO DAILY 12/23/18 03/12/21 Insulin Glargine,Hum.rec.anlog 25 unit SUBQ DAILY 06/28/20 03/12/21 [Basaglar Kwikpen U-100] Rivaroxaban [Xarelto] 20 mg PO QDDINNER 06/28/20 03/12/21 hydroCHLOROthiazide [Hydrodiuril] 25 mg PO DAILY 06/28/20 03/12/21 Metoprolol/Hydrochlorothiazide 1 tab PO DAILY 03/12/21 03/12/21 [Metoprolol-Hctz 50-25 mg Tab] Adhesive Bandage [Bandages] 1 each TP DAILY #6 bandage 03/14/21 Bismuth Tribromoph/Petrolatum 1 each TP DAILY #1 bandage 03/14/21 [Xeroform Non-Occlusive 4"X9'] cephALEXin [Keflex] 500 mg PO Q6HR #32 cap 03/14/21 - LABS Result Diagrams: 03/14/21 05:34 03/14/21 05:34
[2021-03-14] MEDS: INSULIN ASPART 300 UNIT/3 ML PEN SUBQ SCH (08:52)
[2021-03-14] MEDS: METOPROLOL TARTRATE 25 MG TABLET PO SCH (08:53)
[2021-03-14] MEDS: LOSARTAN 50 MG TABLET PO SCH (08:53)
[2021-03-14] MEDS: SODIUM CHLORIDE FLUSH 0.9% 10 ML SYRINGE IVP SCH (08:55)
== END 2021-03-14 11:10 | disposition home or self-care (01) | DRG 603 ==
LOC: ED 17:14 → MS2 17:55
PROVIDERS: ADMIT Specialist; ATTEND Specialist
DX: L03.116 Cellulitis of left lower limb (principal); I48.20 Chronic atrial fibrillation, unspecified; E11.621 Type 2 diabetes mellitus with foot ulcer; L97.529 Non-pressure chronic ulcer of other part of left foot with unspecified severity; L97.829 Non-pressure chronic ulcer of other part of left lower leg with unspecified severity; E11.65 Type 2 diabetes mellitus with hyperglycemia; N17.9 Acute kidney failure, unspecified; I48.91 Unspecified atrial fibrillation; G47.30 Sleep apnea, unspecified; F17.200 Nicotine dependence, unspecified, uncomplicated; E11.40 Type 2 diabetes mellitus with diabetic neuropathy, unspecified; R01.1 Cardiac murmur, unspecified; B95.0 Streptococcus, group A, as the cause of diseases classified elsewhere; I12.9 Hypertensive chronic kidney disease with stage 1 through stage 4 chronic kidney disease, or unspecified chronic kidney disease; Z20.822 Contact with and (suspected) exposure to COVID-19; E11.22 Type 2 diabetes mellitus with diabetic chronic kidney disease; N18.9 Chronic kidney disease, unspecified; G47.33 Obstructive sleep apnea (adult) (pediatric); S80.812S Abrasion, left lower leg, sequela; V84 Occupant of special vehicle mainly used in agriculture injured in transport accident; N40.1 Benign prostatic hyperplasia with lower urinary tract symptoms; R35.1 Nocturia; R39.12 Poor urinary stream; M19.90 Unspecified osteoarthritis, unspecified site; H54.7 Unspecified visual loss; H91.90 Unspecified hearing loss, unspecified ear; E78.00 Pure hypercholesterolemia, unspecified; I25.10 Atherosclerotic heart disease of native coronary artery without angina pectoris; Z96.649 Presence of unspecified artificial hip joint; Z96.643 Presence of artificial hip joint, bilateral; Z79.4 Long term (current) use of insulin; Z79.01 Long term (current) use of anticoagulants; Z79.899 Other long term (current) drug therapy; I10 Essential (primary) hypertension
CPT/HCPCS: 36415; 80048; 83036; 85025; 85651; 86140; 87631; 99284; 99285; A9270; J1815; 0202U

== ENCOUNTER 2021-05-25 18:29 | Outpatient (CLI) | payer MEDICARE, OTHER | END 2021-05-25 18:30 | disposition E | LOC: EMS 18:29 | DX: I46.9 Cardiac arrest, cause unspecified (principal) | CPT/HCPCS: A0425; A0429 ==